=== PATIENT | female | born 1940 | race Caucasian/White ===

== ENCOUNTER 2019-10-17 12:09 | Outpatient (CLI) | payer OTHER, SELFPAY ==
[2019-10-17 12:54] LABS: Basophils Absolute Auto 0.1 K/mm3 (0.0-0.1); Basophils Percent Auto 0.6 % (0.2-1.2); Eosinophils Absolute Auto 0.2 K/mm3 (0-0.3); Eosinophils Percent Auto 2.5 % (0-4.4); Hematocrit 45.6 % (37.0-47.0); Hemoglobin 15.4 g/dL (12.0-15.0); Immature Granulocyte Absolute 0.03 K/mm3 (0.00-0.031); Immature Granulocyte Percent A 0.4 % (0-0.5); Lymphocytes Absolute Auto 1.85 K/mm3 (0.9-3.2); Lymphocytes Percent Auto 22.2 % (18.3-44.2); Mean Corpuscular HGB Conc 33.8 g/dl (32-36); Mean Corpuscular Hemoglobin 28.7 pg (26-34); Mean Corpuscular Volume 85.1 fl (80-100); Mean Platelet Volume 8.8 fl (7.4-10.4); Monocytes Percent Auto 12.5 % (2.6-8.5); Neutrophils Absolute Auto 5.2 K/mm3 (1.3-6.7); Neutrophils Percent Auto 61.8 % (45.5-73.1); Platelet Count Result 220 k/mm3 (150-375); Red Blood Count 5.36 M/mm3 (4.2-5.4); Red Cell Distribution Width 13.3 % (11.5-14.5); White Blood Count 8.4 K/mm3 (4.5-10.0)
[2019-10-17 13:10] LABS: Alanine Aminotransferase 22 U/L (4-35); Albumin Level 4.5 g/dL (3.5-5.1); Alkaline Phosphatase 81 U/L (38-126); Aspartate Amino Transferase 35 U/L (14-36); Bilirubin,Total 0.6 mg/dL (0.2-1.3); Blood Urea Nitrogen 15 mg/dL (7-17); Calcium 9.7 mg/dL (8.4-10.2); Carbon Dioxide 28 mmol/L (22-30); Chloride 96 mmol/L (98-107); Estimated Glomerular Filt Rate 60; Glucose 148 mg/dL (65-105); Potassium 3.6 mmol/L (3.4-5.0); Sodium 140 mmol/L (137-145)
== END 2019-10-17 12:10 | disposition home or self-care (01) ==
PROVIDERS: Visit Provider Psychiatry & Neurology Neurology
DX: I63.9 Cerebral infarction, unspecified (principal)
CPT/HCPCS: 36415; 80053; 85025

== ENCOUNTER 2019-12-23 10:23 | Outpatient (CLI) | payer OTHER, SELFPAY ==
[2019-12-23 11:21] LABS: Hemoglobin A1C 6.6 % (<5.7)
== END 2019-12-23 10:24 | disposition home or self-care (01) ==
PROVIDERS: PCP Emergency Medicine; Visit Provider Psychiatry & Neurology Neurology
DX: E11.9 Type 2 diabetes mellitus without complications (principal)
CPT/HCPCS: 36415; 83036

== ENCOUNTER 2020-02-02 11:31 | Inpatient (IN) | payer OTHER, SELFPAY ==
[2020-02-02] VITALS (12 sets, daily range): BP systolic 102–179; BP diastolic 59–93; PULSE 73–122; RESP 18–27; TEMP 36.4–39.5; O2SAT 94–100; BMI 24.5
--- NOTE | ~2020-02-02 | CT_ITS ---
EXAMINATION: CT abdomen pelvis w con DATE: 02/04/2020 10:20 INDICATION: Epigastric abdominal pain. Diarrhea. TECHNIQUE: Computed tomography (CT) of the abdomen and pelvis was performed with 100 mL Omnipaque 350 intravenous contrast. Automated exposure control and iterative reconstruction technique were employe d. The dose-length product was 450.71 mGy-cm. COMPARISON: None. FINDINGS: The visualized portions of the lung bases demonstrate airspace and ground glass opacities i n right lower lobe, consistent with pneumonia. There is mild atelectasis in left lung. There is shae h septal thickening bilaterally, consistent with mild pulmonary edema. There is a small right pleural effusion. There is a trace left pleural effusion. The heart size is normal. There are coronary arter y calcifications. No pericardial effusion. Bilateral breast implants are noted. The liver, spleen, ga llbladder, pancreas, and adrenal glands are normal. There is cortical thinning of the kidneys. There is a 6 mm cyst in right kidney. There is liquid stool in the colon correlating with the symptom of di arrhea. There are no dilated loops of bowel. The appendix not visualized. There is a small sliding hi atal hernia. There are no pathologically enlarged lymph nodes. There is trace pelvic ascites. There i s severe lumbar spondylosis. IMPRESSION: 1. Mild pulmonary edema. 2. Right lower lobe pneumonia. 3. Small right pleural effusion. Reviewed, dictated and finalized at location A.
--- NOTE | ~2020-02-02 | XR_ITS ---
EXAMINATION: XR chest 2V DATE: 02/02/2020 12:14 INDICATION: Generalized weakness, nausea and vomiting TECHNIQUE: AP and lateral views of the chest are obtained. COMPARISON: 08/07/2018 FINDINGS: There are airspace opacities of the lung bases. There is no pleural effusion or pneumothora x. The cardiomediastinal silhouette is normal. There is severe thoracic spondylosis. Bilateral breast implants are noted. IMPRESSION: 1. Airspace opacities of the lung bases, consistent with atelectasis versus pneumonia. Reviewed, dictated and finalized at location A. IMPRESSION: 1. Airspace opacities of the lung bases, consistent with atelectasis versus pne umonia.
--- NOTE | 2020-02-02 11:39 | ECG_ITS ---
Measurements Intervals [place] Rate: 116 P: 11 [place]: 162 QRS: -32 QRSD: 101 T: 38 QT: 311 QTc: 434 Interpretive Statements SINUS TACHYCARDIA LEFT AXIS DEVIATION DELAYED PRECORDIAL R/S TRANSITION INFERIOR INFARCT, AGE INDETERMINATE BORDERLINE ST ABNORMALITY- HIGH LATERAL LEADS BASELINE WANDER- V1-V2 ABNORMAL ECG Electronically Signed On 02-02-2020 14:02:38 CDT by Zan Díaz D.O.
[2020-02-02 11:48] LABS: Basophils Percent Auto 0.1 % (0.2-1.2); Eosinophils Percent Auto 0.1 % (0-4.4); Hemoglobin 14.4 g/dL (12.0-15.0); Immature Granulocyte Absolute 0.08 K/mm3 (0.00-0.031); Immature Granulocyte Percent A 0.6 % (0-0.5); Lymphocytes Absolute Auto 0.56 K/mm3 (0.9-3.2); Lymphocytes Percent Auto 3.9 % (18.3-44.2); Mean Corpuscular HGB Conc 33.5 g/dl (32-36); Mean Corpuscular Hemoglobin 28.5 pg (26-34); Mean Corpuscular Volume 85.1 fl (80-100); Mean Platelet Volume 8.7 fl (7.4-10.4); Monocytes Absolute Auto 1.1 K/mm3 (0.1-0.6); Monocytes Percent Auto 7.4 % (2.6-8.5); Neutrophils Absolute Auto 12.7 K/mm3 (1.3-6.7); Neutrophils Percent Auto 87.9 % (45.5-73.1); Platelet Count Result 190 k/mm3 (150-375); Red Blood Count 5.05 M/mm3 (4.2-5.4); Red Cell Distribution Width 13.2 % (11.5-14.5); White Blood Count 14.5 K/mm3 (4.5-10.0)
[2020-02-02 12:01] LABS: Alanine Aminotransferase 15 U/L (4-35); Alkaline Phosphatase 68 U/L (38-126); Aspartate Amino Transferase 24 U/L (14-36); Bilirubin,Total 0.4 mg/dL (0.2-1.3); Blood Urea Nitrogen 11 mg/dL (7-17); Calcium 9.1 mg/dL (8.4-10.2); Carbon Dioxide 26 mmol/L (22-30); Chloride 97 mmol/L (98-107); Estimated CRCL calculation 44 ml/min; Estimated Glomerular Filt Rate > 60; Glucose 178 mg/dL (65-105); Potassium 3.5 mmol/L (3.4-5.0); Sodium 133 mmol/L (137-145)
[2020-02-02 12:03] LABS: Add Urine Microscopic? YES; Appearance Urine Clear (Clear); Bacteria Urine Trace /hpf; Bilirubin Urine Negative (Negative); Blood Urine 1+ (Negative); Color Urine Yellow (Yellow); Glucose Urine UA 1+ mg/dL (Negative); Ketones Urine Negative (Negative); Leukocyte Esterase Ur Negative LEU/UL (Negative); Mucus Urine Rare /lpf; Nitrate Urine Negative (Negative); Protein Urine 1+ mg/dL (Negative); RBC Urine 0-2 /hpf (0-2); Specific Grav Ur 1.018 (1.001-1.035); Urobilinogen Urine Negative mg/dL (<2.0); WBC Urine 0-3 /hpf
[2020-02-02 12:14] LABS: Lactic Acid Reflex 3.3 mmol/L (0.7-2.1)
--- NOTE | 2020-02-02 12:35 | ED.GENADULT ---
HPI - General Adult General Chief complaint: Weakness Stated complaint: DIARRHEA Time Seen by Provider: 02/02/20 12:17 History of Present Illness HPI narrative: Patient is a 79 y/o female complaining of feeling hot and weak starting several hours ago. She states that her symptoms were moderate. There was no alleviating or exacerbating factor. However, her symptoms improved spontaneously. She denies any fever, cough, chest pain or abdominal pain. Related Data Home Medications Medication Instructions Recorded Confirmed venlafaxine 150 mg PO DAILY 02/02/20 02/02/20 Allergies Allergy/AdvReac Type Severity Reaction Status Date / Time No Known Allergies Allergy Unverified 08/07/18 16:00 Review of Systems Constitutional: Constitutional: Denies chills, Denies fever(s), Denies headache(s) and Denies weakness Eyes: Eyes: Denies blurry vision ENT: Denies headache(s) and Denies neck pain Cardiovascular: Cardiovascular: Denies chest pain and Denies dyspnea Respiratory: Respiratory: Denies cough and Denies dyspnea Gastrointestinal: Gastrointestinal: Denies abdominal pain, Denies diarrhea, Denies nausea and Denies vomiting Genitourinary: Genitourinary: Denies hematuria and Denies dysuria Musculoskeletal: Musculoskeletal: Denies back pain and Denies neck pain Neurologic: Denies headache(s) and Denies weakness [facility] Family History Family History (Updated 02/02/20 @ 15:07 by Dwaine Weber RN) Sibling Family history of malignant neoplasm of ovary Acute myocardial infarction Mother PNA (pneumonia) Social History Social History Smoking packs per day: 1 Smoking cigarettes per day: 20.0 Years smoked: 40 Smoking pack-years: 40.00 Smoking status: Former smoker Smoking end date: 08/20/1959 Alcohol intake: never Substance use: never Gender identity (if verbalized by the patient): Female Spiritual care concerns: No Exam Const: General: no acute distress and well developed Orientation/consciousness: oriented to person, oriented to place, oriented to time and patient oriented x3 HENMT: Head: normocephalic Ears: external ears normal General nose exam: Normal external nose present Eyes: General: appearance normal, both eyes and all related structures Conjunctivae: conjunctivae normal Neck: Neck: normal visual inspection and full ROM Chest: Chest palpation & inspection: normal inspection of the chest and no tenderness Resp: Effort & Inspection: normal respiratory effort Auscultation: clear to auscultation bilaterally Cardio: Rate: tachycardic Rhythm: regular rhythm GI: GI Palp: No abdominal tenderness and Yes Soft to palpation Skin: General skin exam: normal color and turgor normal Neuro: General: oriented to person, oriented to place, oriented to time and patient oriented x3 Cranial nerves: Yes CN's II-XII intact bilaterally Cognition (Neuro): normal cognition Speech: normal speech Motor exam (neuro): 5/5 motor strength present throughout Sensory Exam: normal sensation Coordination: [id number]-[id number] test normal and [id number] test normal Extrem: General: normal to inspection, full ROM and no pedal edema Psych: Appearance: grossly normal Mental Status: mental status grossly normal Affect: normal affect Course Vital Signs Vital signs: Vital Signs Temperature 36.6 C 02/02/20 11:28 Pulse Rate 122 H 02/02/20 11:28 Respiratory Rate 22 H 02/02/20 11:28 Blood Pressure 179/93 H 02/02/20 11:28 Pulse Oximetry 100 02/02/20 11:28 Temperature 39.5 C H 02/02/20 16:00 Pulse Rate 108 H 02/02/20 16:00 Respiratory Rate 20 02/02/20 15:35 Blood Pressure 147/74 H 02/02/20 15:35 Pulse Oximetry 99 02/02/20 15:35 Medical Decision Making MDM Narrative Medical decision making narrative: Patient presents with feeling hot , although no fever is documented. She has tachycardia, leukocytosis and elevated lacti
[2020-02-02 14:58] LABS: Reflex Lactic Acid Yes or No Add Lactic
--- NOTE | 2020-02-02 15:01 | ADMGEN ---
This patient, Chayito Grimm, was admitted to [facility] Surg Room 333-01. Patient/family oriented to hospital policies and general routines including ID bracelet, bed and alarms, visiting hours, pain management, procedures, bathroom and other care routines, personal items, smoking policy, room service/diet, and visiting hours. Valuables list has been completed. Information on how to activate the Rapid Response Team has been discussed. Patient/Family are encouraged to report perceived risks to care and to ask questions if they do not understand what they are told or what they should do.
[2020-02-02 15:34] LABS: Lactic Acid 1.9 mmol/L (0.7-2.1)
[2020-02-02] MEDS: ACETAMINOPHEN 325 MG TABLET 650 MG PO (16:00)
--- NOTE | 2020-02-02 21:45 | PM.IMHP ---
H&P: HPI History of Present Illness Chief complaint: Generalized weakness. Narrative: Chayito Grimm is a very pleasant 79-year-old female with history of depression, anxiety, and sleep apnea earlier this afternoon via EMS from home for evaluation of generalized weakness. She reports having diarrhea for approximately 5 days, so severe that she had episodes of incontinence and was unable to make it to the bathroom due to progressive weakness. She has not had diarrhea for well over 24 hours, but she feels so dehydrated and worn out from the diarrhea that she has barely been able to get up and about without feeling dizzy. Today, she reports feeling warm and thought she likely had a fever, after discussions with her friend they thought it would be best to call the ambulance. With further questioning, she does mention a nonproductive cough over the past 2 days, a generalized headache, and perhaps a bit of shortness of breath which she blames on weakness from her recent illness. She lives in her own home and has been trying to stay at home, into her knowledge she has not had exposure to anybody who has tested positive for COVID-19. No recent travel or antibiotic use. She denies sinus congestion, rhinorrhea, otalgia, odynophagia, anosmia, and dysgeusia. She has not had chest pain, pleuritic pain, or palpitations. Her appetite has been okay and she denies nausea and vomiting to me however it looks like she reported nausea and vomiting to the triage nurse on arrival to the emergency department. She has not had dysuria, urinary hesitancy, urgency, or frequency. She does note some incontinence, which has been worse the past couple of days due to her weakness and inability to get to the bathroom in a timely fashion. Review of Systems Review of Systems: Narrative: Twelve systems were reviewed with pertinent positives and negatives as per HPI. No neck ache. She denies sinus congestion, rhinorrhea, otalgia, and odynophagia. No history of C diff. No wounds to her knowledge. No chest pain or pleuritic pain. She denies lower extremity edema. No confusion. She denies acute auditory and visual changes. No focal weakness or paresthesias. She does report increasing depression since her son last June. No suicidal ideation. Except as documented, all other systems were reviewed and are negative. [facility] Past Medical History Medical History (Updated 02/02/20 @ 23:34 by Gisela Malik PA-C) Depression with anxiety Gastroesophageal reflux disease Obstructive sleep apnea She does not use a CPAP. Rheumatic fever In childhood. Surgical History Surgical History (Updated 02/02/20 @ 20:53 by Gisela Malik PA-C) History of appendectomy History of tonsillectomy and adenoidectomy Family History Family History Sibling Family history of malignant neoplasm of ovary Acute myocardial infarction Mother PNA (pneumonia) Social History Social History (Updated 02/02/20 @ 23:20 by Gisela Malik PA-C) Social History: The patient lives in her own home in [place], [place]. She has an orange cat named terrence that lives at home with her. Her only child, son Lam, in June 2019. 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 She smoked about a pack of cigarettes per day and quit many years ago. She denies alcohol and illicit substance use. She designates her ex-, Familia Grimm, and a friend named Inocencia as her surrogate decision makers. She wishes to be a full code. Smoking packs per day: 1 Smoking cigarettes per day: 20.0 Years smoked: 40 Smoking pack-years: 40.00 Spiritual care concerns: No Meds Home Medications and Allergies Home Medications Medication Instructions Recorded Confirmed Type alprazolam 0.25 mg tablet 0.25 mg PO TID PRN #60 tablet 09/12/19 02/02/20 Rx ve
[2020-02-03] VITALS (10 sets, daily range): BP systolic 110–144; BP diastolic 55–83; PULSE 66–95; RESP 16–18; TEMP 36.3–37.2; O2SAT 92–99; BMI 24.5
[2020-02-03] MEDS: SODIUM CHLORIDE 0.9% IV 1,000 ML 75 ML IV CONT ×2 (00:14→15:34)
[2020-02-03] MEDS: ACETAMINOPHEN 325 MG TABLET 650 MG PO ×2 (06:18→17:23)
[2020-02-03] MEDS: ALPRAZOLAM 0.25 MG TABLET PO (06:18)
[2020-02-03 08:36] LABS: Basophils Percent Auto 0.2 % (0.2-1.2); Eosinophils Absolute Auto 0.1 K/mm3 (0-0.3); Eosinophils Percent Auto 0.4 % (0-4.4); Hematocrit 35.4 % (37.0-47.0); Hemoglobin 11.9 g/dL (12.0-15.0); Immature Granulocyte Absolute 0.06 K/mm3 (0.00-0.031); Immature Granulocyte Percent A 0.4 % (0-0.5); Lymphocytes Absolute Auto 1.03 K/mm3 (0.9-3.2); Lymphocytes Percent Auto 7.2 % (18.3-44.2); Mean Corpuscular HGB Conc 33.6 g/dl (32-36); Mean Corpuscular Hemoglobin 28.8 pg (26-34); Mean Corpuscular Volume 85.7 fl (80-100); Mean Platelet Volume 9.2 fl (7.4-10.4); Monocytes Absolute Auto 1.4 K/mm3 (0.1-0.6); Monocytes Percent Auto 10.1 % (2.6-8.5); Neutrophils Absolute Auto 11.6 K/mm3 (1.3-6.7); Neutrophils Percent Auto 81.7 % (45.5-73.1); Platelet Count Result 173 k/mm3 (150-375); Red Blood Count 4.13 M/mm3 (4.2-5.4); Red Cell Distribution Width 13.3 % (11.5-14.5); White Blood Count 14.2 K/mm3 (4.5-10.0)
[2020-02-03 08:55] LABS: Blood Urea Nitrogen 11 mg/dL (7-17); Calcium 8.1 mg/dL (8.4-10.2); Carbon Dioxide 25 mmol/L (22-30); Chloride 98 mmol/L (98-107); Estimated CRCL calculation 39 ml/min; Estimated Glomerular Filt Rate 60; Glucose 148 mg/dL (65-105); Magnesium 1.4 mg/dL (1.6-2.3); Potassium 3.5 mmol/L (3.4-5.0); Sodium 129 mmol/L (137-145)
[2020-02-03] MEDS: VENLAFAXINE HCL XR 75 MG CAP.ER.24H 150 MG PO (09:24)
[2020-02-03] MEDS: ENOXAPARIN 40 MG/0.4 ML SYRINGE SUB-Q (09:24)
[2020-02-03 14:02] LABS: SARS-CoV-2 RNA PCR Negative
--- NOTE | 2020-02-03 14:28 | PC.NURSE ---
Notified Derek JESUS that patients COVID test came back negative
[2020-02-03] MEDS: MAGNESIUM SULF 2 GM/WATER 50ML 2 GM/50 ML BAG IVPB (15:21)
--- NOTE | 2020-02-03 16:28 | PM.IMPN ---
Progress Note: A&P Assessment and Plan (1) Sepsis: Qualifiers: Sepsis acute organ dysfunction status: unspecified Sepsis type: sepsis due to unspecified organism Qualified Code(s): A41.9 - Sepsis, unspecified organism Code(s): A41.9 - Sepsis, unspecified organism Status: Acute Assessment and Plan: Present on admission and supported by fever, tachycardia, tachypnea, leukocytosis, and lactic acidosis; all have improved/normalized since admission. Her lactic acid level has normalized with IV fluid rehydration. Blood cultures negative to date. Etiology of sepsis not entirely clear, but would consider pneumonia given chest x-ray findings or even GI source given diarrhea and epigastric pain Will continue empiric antibiotic therapy with Zosyn which should cover either source, pending cultures. Will do CT of abd/pelvis given nowing having epigastric pain and continued diarrhea Monitor (2) Suspected COVID-19 virus infection: Code(s): Z20.828 - Contact with and (suspected) exposure to other viral communicable diseases Status: Ruled-out Assessment and Plan: SARS-CoV-2 PCR negative will take of isolation (3) Depression with anxiety: Code(s): F41.8 - Other specified anxiety disorders Status: Acute Assessment and Plan: She admits to being more depressed since her only child in June 2019. 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 She is hoping to get in to [facility]. Continue alprazolam as needed as well as venlafaxine. (4) Pneumonia: Code(s): J18.9 - Pneumonia, unspecified organism Status: Acute Assessment and Plan: Chest x-ray shows airways opacities at both lung bases consistent with atelectasis versus pneumonia. Given reports of cough the past couple of days, will empirically treat for pneumonia. Sputum to be attempted for culture; check urinary antigens as well. Monitor (5) Diarrhea: Code(s): R19.7 - Diarrhea, unspecified Status: Acute Assessment and Plan: Patient continues to have diarrhea for the past 6 days. Epigastric pain/tenderness noted on exam. C. diff testing negative. Will do CT abd/pelvis with contrast to further evaluate; await results Monitor Pending CT results consider GI consultation (6) Generalized weakness: Code(s): R53.1 - Weakness Status: Acute Assessment and Plan: Due to acute illness. PT/OT ordered Patient expresses interest in moving to assisted living. Subjective Date/time seen: 02/03/20 16:28 Interval history: Patient is a 79 yo F with history of depression, anxiety, and sleep apnea who is here for treatment of sepsis with likely source of PNA. Patient states she still has some diarrhea, having two BMs today. She notes there is some improvement. She states has had a cough that has been unchanged for about 2 weeks. She has no other complaints at the moment. Denies f/c/s, headaches, dizziness, lightheadedness, cp/palpitations, sob, n/v,dysuria, hematuria, cloudy urine, calf pain/swelling. Review of Systems Review of Systems: All systems reviewed & are unremarkable except as noted in HPI and below Exam Narrative: Exam Narrative: Patient lying supine in bed with head raised slightly at time of visit Const: General: cooperative, comfortable, no acute distress, well developed, alert and awake Nutritional Appearance: well nourished Orientation/consciousness: patient oriented x3 HENMT: Head: normocephalic and atraumatic General nose
[2020-02-04 02:00] VITALS: BP 137/79; PULSE 94; RESP 18; TEMP 36.2; O2SAT 94
[2020-02-04 06:00] VITALS: BP 155/82; PULSE 83; RESP 18; TEMP 36.8; O2SAT 93
[2020-02-04 06:39] LABS: Basophils Percent Auto 0.3 % (0.2-1.2); Eosinophils Percent Auto 0.3 % (0-4.4); Hematocrit 35.5 % (37.0-47.0); Hemoglobin 12.3 g/dL (12.0-15.0); Immature Granulocyte Absolute 0.09 K/mm3 (0.00-0.031); Immature Granulocyte Percent A 0.6 % (0-0.5); Lymphocytes Absolute Auto 0.78 K/mm3 (0.9-3.2); Lymphocytes Percent Auto 5.3 % (18.3-44.2); Mean Corpuscular HGB Conc 34.6 g/dl (32-36); Mean Corpuscular Hemoglobin 29.4 pg (26-34); Mean Corpuscular Volume 84.7 fl (80-100); Mean Platelet Volume 9.4 fl (7.4-10.4); Monocytes Absolute Auto 1.2 K/mm3 (0.1-0.6); Monocytes Percent Auto 7.8 % (2.6-8.5); Neutrophils Absolute Auto 12.6 K/mm3 (1.3-6.7); Neutrophils Percent Auto 85.7 % (45.5-73.1); Platelet Count Result 197 k/mm3 (150-375); Red Blood Count 4.19 M/mm3 (4.2-5.4); White Blood Count 14.7 K/mm3 (4.5-10.0)
[2020-02-04 06:55] LABS: Blood Urea Nitrogen 8 mg/dL (7-17); Calcium 8.4 mg/dL (8.4-10.2); Carbon Dioxide 25 mmol/L (22-30); Chloride 99 mmol/L (98-107); Estimated CRCL calculation 50 ml/min; Estimated Glomerular Filt Rate > 60; Glucose 134 mg/dL (65-105); Potassium 3.3 mmol/L (3.4-5.0); Sodium 130 mmol/L (137-145)
[2020-02-04 10:00] VITALS: BP 163/74; PULSE 83; RESP 24; TEMP 38.1; O2SAT 96
--- NOTE | 2020-02-04 10:20 | PCPTNOTE ---
Attempted to see pt this a.m. - she was off the floor at CT. Will try again later today.
[2020-02-04] MEDS: ENOXAPARIN 40 MG/0.4 ML SYRINGE SUB-Q (11:00)
[2020-02-04] MEDS: POTASSIUM CHLORIDE 20 MEQ TABLET 40 MEQ PO (11:00)
[2020-02-04] MEDS: VENLAFAXINE HCL XR 75 MG CAP.ER.24H 150 MG PO (11:00)
--- NOTE | 2020-02-04 12:24 | PM.IMPN ---
Progress Note: A&P Assessment and Plan (1) Sepsis: Qualifiers: Sepsis acute organ dysfunction status: unspecified Sepsis type: sepsis due to unspecified organism Qualified Code(s): A41.9 - Sepsis, unspecified organism Code(s): A41.9 - Sepsis, unspecified organism Status: Acute Assessment and Plan: Present on admission and supported by fever, tachycardia, tachypnea, leukocytosis, and lactic acidosis. Her lactic acid level has normalized with IV fluid rehydration. Blood cultures show one anaerobic bottle growing gram positive cocci in clusters; possibly skin contaminate. Etiology of sepsis likely pneumonia as source given chest x-ray and CT abd/pelvis results. GI source unlikely given CT results Will continue empiric antibiotic therapy with Zosyn for PNA, will add Vanc given positive blood culture, although, likely contaminate; also having increased leukocytosis today. Monitor (2) Pneumonia: Code(s): J18.9 - Pneumonia, unspecified organism Status: Acute Assessment and Plan: Chest x-ray shows airways opacities at both lung bases consistent with atelectasis versus pneumonia. CT of abd/pelvis showed RLL PNA. Will continue treatment with Zosyn and add Vanc given persistently elevated leukocytosis and prelim positive blood culture (one anaerobic bottle only, likely contaminate as gram positive cocci in clusters) Sputum to be attempted for culture; check urinary antigens as well. Monitor BCx closely, consider repeat BCx and possible ID consult if growth in other bottles Consider de-escalation pending Blood cultures and clinical improvement Monitor clinically (3) Depression with anxiety: Code(s): F41.8 - Other specified anxiety disorders Status: Acute Assessment and Plan: She admits to being more depressed since her only child in June 2019. 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 She is hoping to get in to [facility]. Continue alprazolam as needed as well as venlafaxine. (4) Diarrhea: Code(s): R19.7 - Diarrhea, unspecified Status: Acute Assessment and Plan: Patient states she has had improvement today. Epigastric pain has resolved, but stated it was due to her abdominal muscles from coughing. CT abd/pelvis unremarkable for etiology for diarrhea/pain and possible source of infection. Stool testing negative thus far. will add Florastor TID for loose stools, particularly during antibiotic therapy. Monitor (5) Generalized weakness: Code(s): R53.1 - Weakness Status: Acute Assessment and Plan: Due to acute illness. PT/OT ordered Patient expresses interest in moving to assisted living. (6) Suspected COVID-19 virus infection: Code(s): Z20.828 - Contact with and (suspected) exposure to other viral communicable diseases Status: Ruled-out Assessment and Plan: SARS-CoV-2 PCR negative Subjective Date/time seen: 02/04/20 12:24 Interval history: Patient is a 79 yo F with history of depression, anxiety, and sleep apnea who is here for treatment of sepsis with likely source of PNA. Patient states she feels much better today. She notes her cough/SOB is improved. Her abdominal pain and diarrhea have also improved. She is tolerating her diet okay. No other complaints at the moment. Denies f/c/s, headaches, dizziness, lightheadedness, cp/palpitations, sob, n/v, dysuria, hematuria, cloudy urine, calf pain/swelling. Review of Systems Review of Systems: All systems reviewed & ar
[2020-02-04 14:00] VITALS: BP 149/79; PULSE 84; RESP 16; TEMP 36.7; O2SAT 95
[2020-02-04] MEDS: SACCHAROMYCES BOULARDII 250 MG CAPSULE PO (17:00)
[2020-02-04 22:00] VITALS: BP 157/85; PULSE 80; RESP 18; TEMP 37.4; O2SAT 94
[2020-02-05 02:00] VITALS: BP 142/70; PULSE 77; RESP 18; TEMP 38.1; O2SAT 94
[2020-02-05 06:00] VITALS: BP 148/75; PULSE 72; RESP 20; TEMP 37.1; O2SAT 93
[2020-02-05 06:37] LABS: Basophils Absolute Auto 0.1 K/mm3 (0.0-0.1); Basophils Percent Auto 0.4 % (0.2-1.2); Eosinophils Absolute Auto 0.1 K/mm3 (0-0.3); Eosinophils Percent Auto 0.6 % (0-4.4); Hematocrit 31.5 % (37.0-47.0); Hemoglobin 10.9 g/dL (12.0-15.0); Immature Granulocyte Absolute 0.06 K/mm3 (0.00-0.031); Immature Granulocyte Percent A 0.5 % (0-0.5); Lymphocytes Absolute Auto 1.27 K/mm3 (0.9-3.2); Lymphocytes Percent Auto 10.8 % (18.3-44.2); Mean Corpuscular HGB Conc 34.6 g/dl (32-36); Mean Corpuscular Hemoglobin 29.4 pg (26-34); Mean Corpuscular Volume 84.9 fl (80-100); Mean Platelet Volume 9.7 fl (7.4-10.4); Monocytes Absolute Auto 1.1 K/mm3 (0.1-0.6); Neutrophils Absolute Auto 9.3 K/mm3 (1.3-6.7); Neutrophils Percent Auto 78.7 % (45.5-73.1); Platelet Count Result 199 k/mm3 (150-375); Red Blood Count 3.71 M/mm3 (4.2-5.4); Red Cell Distribution Width 13.1 % (11.5-14.5); White Blood Count 11.8 K/mm3 (4.5-10.0)
[2020-02-05 06:46] LABS: Blood Urea Nitrogen 6 mg/dL (7-17); Calcium 8.4 mg/dL (8.4-10.2); Carbon Dioxide 25 mmol/L (22-30); Chloride 100 mmol/L (98-107); Estimated CRCL calculation 50 ml/min; Estimated Glomerular Filt Rate > 60; Glucose 125 mg/dL (65-105); Magnesium 1.9 mg/dL (1.6-2.3); Potassium 3.4 mmol/L (3.4-5.0); Sodium 130 mmol/L (137-145)
[2020-02-05] MEDS: POTASSIUM CHLORIDE 20 MEQ TABLET 40 MEQ PO (08:38)
[2020-02-05] MEDS: ENOXAPARIN 40 MG/0.4 ML SYRINGE SUB-Q (08:39)
[2020-02-05] MEDS: VENLAFAXINE HCL XR 75 MG CAP.ER.24H 150 MG PO (08:39)
[2020-02-05] MEDS: SACCHAROMYCES BOULARDII 250 MG CAPSULE PO ×3 (08:39→17:17)
[2020-02-05] MEDS: ACETAMINOPHEN 325 MG TABLET 650 MG PO ×2 (08:43→15:20)
[2020-02-05 10:16] VITALS: BP 113/70; PULSE 74; RESP 16; TEMP 36.8; O2SAT 95
--- NOTE | 2020-02-05 11:07 | PM.IMPN ---
Progress Note: A&P Assessment and Plan (1) Sepsis: Qualifiers: Sepsis acute organ dysfunction status: unspecified Sepsis type: sepsis due to unspecified organism Qualified Code(s): A41.9 - Sepsis, unspecified organism Code(s): A41.9 - Sepsis, unspecified organism Status: Acute Assessment and Plan: Present on admission and supported by fever, tachycardia, tachypnea, leukocytosis, and lactic acidosis. Her lactic acid level has normalized with IV fluid rehydration. Blood cultures show one anaerobic bottle growing coag neg staph; likely skin contaminate. Etiology of sepsis likely pneumonia as source given chest x-ray and CT abd/pelvis results. GI source unlikely given CT results. Leukocytosis improving Will switch antibiotic therapy to cefdinir Q12 and azithromycin daily. Stop vanc and zosyn Monitor (2) Pneumonia: Code(s): J18.9 - Pneumonia, unspecified organism Status: Acute Assessment and Plan: Chest x-ray shows airways opacities at both lung bases consistent with atelectasis versus pneumonia. CT of abd/pelvis showed RLL PNA. As above, will stop vanc and zosyn. Start patient on cefdinir 300 mg Q12 PO tonight and azithromycin 500 mg every evening PO. Sputum to be attempted for culture; check urinary antigens as well; unfortunately both have been uncollected Monitor BCx closely, consider repeat BCx and possible ID consult if growth in other bottles Monitor clinically Continue with Florastor for loose stools (3) Depression with anxiety: Code(s): F41.8 - Other specified anxiety disorders Status: Acute Assessment and Plan: She admits to being more depressed since her only child in June 2019. 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 She is hoping to get in to [facility]. Continue alprazolam as needed as well as venlafaxine. (4) Diarrhea: Code(s): R19.7 - Diarrhea, unspecified Status: Acute Assessment and Plan: Patient states she has had improvement today. Epigastric pain has resolved, but stated it was due to her abdominal muscles from coughing. CT abd/pelvis unremarkable for etiology for diarrhea/pain and possible source of infection. Stool testing negative thus far. will continue Florastor TID for loose stools, particularly during antibiotic therapy. Monitor (5) Generalized weakness: Code(s): R53.1 - Weakness Status: Acute Assessment and Plan: Due to acute illness. PT/OT ordered SNF recommended. Patient would like to think this more, but is open to either SNF or HH. CC following Patient expresses interest in moving to assisted living. (6) Suspected COVID-19 virus infection: Code(s): Z20.828 - Contact with and (suspected) exposure to other viral communicable diseases Status: Ruled-out Assessment and Plan: SARS-CoV-2 PCR negative Subjective Date/time seen: 02/05/20 11:07 Interval history: Patient is a 79 yo F with history of depression, anxiety, and sleep apnea who is here for treatment of sepsis with likely source of PNA. Patient states she feels about the same today. Her main complaint is weakness today. She notes her cough/SOB is improved, although still some abdominal/chest discomfort with inspiration from coughing so much. She still has loose stools, but one BM/day per patient. She is tolerating her diet okay. No other complaints at the moment. Had a long discussion about possibly going to SNF for further rehab; she is now open to the idea, but wants t
[2020-02-05 14:45] VITALS: BP 128/63; PULSE 83; RESP 16; TEMP 37.7; O2SAT 96
[2020-02-05] MEDS: AZITHROMYCIN 250 MG TABLET 500 MG PO (17:17)
[2020-02-05 17:50] VITALS: BP 141/70; PULSE 77; RESP 16; TEMP 37.7; O2SAT 95
[2020-02-05] MEDS: CEFDINIR 300 MG CAPSULE PO (20:22)
[2020-02-05 22:00] VITALS: BP 168/74; PULSE 68; RESP 18; TEMP 36.8; O2SAT 96
[2020-02-06 02:49] VITALS: BP 157/80; PULSE 79; RESP 18; TEMP 37.6; O2SAT 93
[2020-02-06 06:00] VITALS: BP 153/87; PULSE 78; RESP 20; TEMP 36.7; O2SAT 94
[2020-02-06 06:21] LABS: Basophils Percent Auto 0.3 % (0.2-1.2); Eosinophils Absolute Auto 0.2 K/mm3 (0-0.3); Eosinophils Percent Auto 1.6 % (0-4.4); Hematocrit 33.7 % (37.0-47.0); Hemoglobin 11.5 g/dL (12.0-15.0); Immature Granulocyte Absolute 0.06 K/mm3 (0.00-0.031); Immature Granulocyte Percent A 0.6 % (0-0.5); Lymphocytes Absolute Auto 1.13 K/mm3 (0.9-3.2); Lymphocytes Percent Auto 11.8 % (18.3-44.2); Mean Corpuscular HGB Conc 34.1 g/dl (32-36); Mean Corpuscular Hemoglobin 28.8 pg (26-34); Mean Corpuscular Volume 84.5 fl (80-100); Mean Platelet Volume 9.2 fl (7.4-10.4); Monocytes Absolute Auto 0.9 K/mm3 (0.1-0.6); Monocytes Percent Auto 9.1 % (2.6-8.5); Neutrophils Absolute Auto 7.4 K/mm3 (1.3-6.7); Neutrophils Percent Auto 76.6 % (45.5-73.1); Platelet Count Result 236 k/mm3 (150-375); Red Blood Count 3.99 M/mm3 (4.2-5.4); Red Cell Distribution Width 13.2 % (11.5-14.5); White Blood Count 9.6 K/mm3 (4.5-10.0)
[2020-02-06 06:35] LABS: Blood Urea Nitrogen 7 mg/dL (7-17); Calcium 8.6 mg/dL (8.4-10.2); Carbon Dioxide 26 mmol/L (22-30); Chloride 101 mmol/L (98-107); Estimated CRCL calculation 57 ml/min; Estimated Glomerular Filt Rate > 60; Glucose 120 mg/dL (65-105); Magnesium 1.7 mg/dL (1.6-2.3); Potassium 3.9 mmol/L (3.4-5.0); Sodium 131 mmol/L (137-145)
--- NOTE | 2020-02-06 09:07 | PM.DS ---
DS: Admitting Diagnosis Admitting Diagnosis Admitting Diagnosis: Sepsis, unspecified organism DS: Discharge Diagnosis Discharge Diagnosis (1) Sepsis: Qualifiers: Sepsis acute organ dysfunction status: unspecified Sepsis type: sepsis due to unspecified organism Qualified Code(s): A41.9 - Sepsis, unspecified organism Code(s): A41.9 - Sepsis, unspecified organism Status: Acute Assessment and Plan: Present on admission and supported by fever, tachycardia, tachypnea, leukocytosis, and lactic acidosis. Her lactic acid level has normalized with IV fluid rehydration. Etiology of sepsis likely pneumonia as source given chest x-ray and CT abd/pelvis results. GI source unlikely given CT results. Leukocytosis resolved. Blood cultures show one anaerobic bottle growing coag neg staph (sensitive to erythromycin); likely skin contaminate. Will continue cefdinir Q12 and azithromycin daily at discharge through 02/08 (7 total days antibiotic) d/c home with (2) Pneumonia: Code(s): J18.9 - Pneumonia, unspecified organism Status: Acute Assessment and Plan: Chest x-ray shows airways opacities at both lung bases consistent with atelectasis versus pneumonia. CT of abd/pelvis showed RLL PNA. As above, continue cefdinir 300 mg Q12 PO and azithromycin 500 mg every evening PO through 02/08 Sputum to be attempted for culture; check urinary antigens as well; unfortunately both have been uncollected Continue with Florastor for loose stools x 1 week Follow up with PCP in 1-2 weeks (3) Depression with anxiety: Code(s): F41.8 - Other specified anxiety disorders Status: Acute Assessment and Plan: She admits to being more depressed since her only child in June 2019. 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 She is hoping to get in to [facility]. Continue alprazolam as needed as well as venlafaxine. (4) Diarrhea: Code(s): R19.7 - Diarrhea, unspecified Status: Acute Assessment and Plan: Patient states her loose stools are stable, but persistent. Epigastric pain has resolved. CT abd/pelvis unremarkable for etiology for diarrhea/pain and possible source of infection. Stool testing negative thus far. will continue Florastor TID for loose stools, particularly during antibiotic therapy. F/u with PCP (5) Generalized weakness: Code(s): R53.1 - Weakness Status: Acute Assessment and Plan: Due to acute illness. PT/OT ordered; patient has made improvements yesterday; standby assist yesterday HH recommended at discharge. Patient comfortable with this Patient expresses interest in moving to assisted living. follow up with PCP (6) Suspected COVID-19 virus infection: Code(s): Z20.828 - Contact with and (suspected) exposure to other viral communicable diseases Status: Ruled-out Assessment and Plan: SARS-CoV-2 PCR negative DS: Summary Hospital Course Reason for hospitalization: Sepsis/PNA Hospital Course: Patient is a 79 yo F with history of depression, anxiety, and sleep apnea who presented to the ED on 02/01 via EMS from home for evaluation of generalized weakness. While in the ED, patient was found to be technically septic supported by fever, tachycardia, tachypnea, leukocytosis, and lactic acidosis with likely pneumonia as source given CXR findings performed in ED or less likely GI as source given her recent diarrhea. COVID testing also performed in ED. Patient admitted under this setting. Please see H&P for
[2020-02-06] MEDS: SACCHAROMYCES BOULARDII 250 MG CAPSULE PO ×2 (09:48→12:42)
[2020-02-06] MEDS: CEFDINIR 300 MG CAPSULE PO (09:48)
[2020-02-06] MEDS: ENOXAPARIN 40 MG/0.4 ML SYRINGE SUB-Q (09:48)
[2020-02-06] MEDS: VENLAFAXINE HCL XR 75 MG CAP.ER.24H 150 MG PO (09:48)
== END 2020-02-06 14:30 | disposition home health service (06) | DRG 871 ==
LOC: ANHED 12:51 → ANH3MEDSUR 18:08
PROVIDERS: Emergency Medicine; Physician Assistant; Admitting Provider Internal Medicine; Emergency Provider Emergency Medicine; PCP Emergency Medicine; Visit Provider Family Medicine
DX: A41.9 Sepsis, unspecified organism (principal); J18.9 Pneumonia, unspecified organism; Z20.828 Contact with and (suspected) exposure to other viral communicable diseases; F41.8 Other specified anxiety disorders; R19.7 Diarrhea, unspecified; K21.9 Gastro-esophageal reflux disease without esophagitis; G47.33 Obstructive sleep apnea (adult) (pediatric); Z87.891 Personal history of nicotine dependence
CPT/HCPCS: 36415; 51701; 71046; 74177; 80048; 80053; 81001; 83605; 83735; 85025; 87015; 87040; 87045; 87046; 87077; 87186; 87269; 87272; 87324; 87427; 87635; 93005; 96365; 96367; 97110; 97116; 97162; 97165; 97530; 97535; 99285; A9270; C9803; J0692; J1650; J2543; J3370; J3475; J7030; J7120; Q9967; U0003

== ENCOUNTER 2020-02-08 11:32 | Observation (INO) | payer OTHER, SELFPAY ==
[2020-02-08] VITALS (7 sets, daily range): BP systolic 146–190; BP diastolic 72–97; PULSE 70–81; RESP 16–20; TEMP 36.1–36.9; O2SAT 95–100; BMI 23.3; BMI 23.6
--- NOTE | ~2020-02-08 | XR_ITS ---
XR chest 1V portable 02/08/2020 12:40 Indication: Cough Procedure: AP portable chest Comparison: 02/02/2020 Findings: Heart size normal. Interval progression of bibasilar airspace disease, compatible with pneu monia. There are calcified bilateral breast implants. There is atherosclerosis of the aorta. No pleur al effusion or pneumothorax. Impression: 1: Interval progression of bibasilar airspace disease, compatible with pneumonia. Reviewed, dictated and finalized at location A. Impression: 1: Interval progression of bibasilar airspace disease, compatible with pneumoni a.
--- NOTE | ~2020-02-08 | CT_ITS ---
EXAMINATION: CT abdomen pelvis w con DATE: 02/08/2020 13:44 INDICATION: Abdominal pain and diarrhea TECHNIQUE: Computed tomography (CT) of the abdomen and pelvis was performed with 100 cc Omnipaque 350 intravenous contrast. The dose-length product was 403.51 mGy-cm. Automated exposure control and iter ative reconstruction technique were employed. COMPARISON: CT dated 02/04/2020 FINDINGS: There has been slight improvement of bilateral lower lobe airspace disease, right greater t chu left. Small right pleural effusion. Heart size normal. There are calcified bilateral breast impla nts. There is atherosclerosis of the aorta and coronary arteries. The liver, spleen, pancreas, adrenal glands and kidneys are unremarkable. Gallbladder is present. The re is a small subcentimeter right renal cyst. No bowel obstruction. There is liquid stool in the colo n and rectum, consistent with diarrhea. Bladder wall is mildly thickened, although not well distended . No free air or free fluid. No lymphadenopathy. No evidence for aortic aneurysm. Trace ascites. Saumya re lumbar spondylosis. IMPRESSION: 1. Bilateral lower lobe airspace disease, right greater than left, consistent with pneumonia. Finding s improved since prior CT. 2: Small right pleural effusion. 3: Mild bladder wall thickening which may be due to underdistention or cystitis. Consider correlation with urinalysis. Reviewed, dictated and finalized at location A. IMPRESSION: 1. Bilateral lower lobe airspace disease, right greater than left, consistent w ith pneumonia. Findings improved since prior CT. 2: Small right pleural effusion. 3: Mild bladder wall thickening which may be due to underdistention or cystitis . Consider correlation with urinalysis.
--- NOTE | 2020-02-08 11:54 | ED.GENADULT ---
HPI - General Adult General Chief complaint: Nausea/Vomiting/Diarrhea Stated complaint: weakness/diarrhea Time Seen by Provider: 02/08/20 11:46 History of Present Illness HPI narrative: Patient is a 79 y/o female complaining of diarrhea for several weeks. She states that her diarrhea is watery and she has approximately 4 episodes of diarrhea daily. There is no alleviating or exacerbating factor. She has mild abdominal pain, but no vomiting. She also has a mild cough. She also feels weak and feels like she is unable to care for herself at home. Related Data Home Medications Medication Instructions Recorded Confirmed venlafaxine 150 mg PO DAILY 02/02/20 02/02/20 azithromycin 500 mg PO HS 02/08/20 Allergies Allergy/AdvReac Type Severity Reaction Status Date / Time No Known Allergies Allergy Verified 02/08/20 11:50 Review of Systems Constitutional: Constitutional: Denies chills, Denies fever(s), Denies headache(s) and Reports weakness Eyes: Eyes: Denies blurry vision ENT: Denies headache(s) and Denies neck pain Cardiovascular: Cardiovascular: Denies chest pain and Denies dyspnea Respiratory: Respiratory: Reports cough and Denies dyspnea Gastrointestinal: Gastrointestinal: Reports abdominal pain, Reports diarrhea, Denies nausea and Denies vomiting Genitourinary: Genitourinary: Denies hematuria and Denies dysuria Musculoskeletal: Musculoskeletal: Denies back pain and Denies neck pain Neurologic: Denies headache(s) and Denies weakness PMFSH Past Medical History Medical History Depression with anxiety Gastroesophageal reflux disease Obstructive sleep apnea She does not use a CPAP. Rheumatic fever In childhood. Surgical History Surgical History History of appendectomy History of tonsillectomy and adenoidectomy Family History Family History Sibling Family history of malignant neoplasm of ovary Acute myocardial infarction Mother PNA (pneumonia) Social History Social History Social History: The patient lives in her own home in [place], [place]. She has an orange cat named terrence that lives at home with her. Her only child, son Lam, in June 2019. 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 She smoked about a pack of cigarettes per day and quit many years ago. She denies alcohol and illicit substance use. She designates her ex-, Familia Grimm, and a friend named Inocencia as her surrogate decision makers. She wishes to be a full code. Smoking packs per day: 1 Smoking cigarettes per day: 20.0 Years smoked: 40 Smoking pack-years: 40.00 Gender identity (if verbalized by the patient): Female Spiritual care concerns: No Exam Const: General: no acute distress and well developed Orientation/consciousness: oriented to person, oriented to place, oriented to time and patient oriented x3 HENMT: Head: normocephalic Ears: external ears normal General nose exam: Normal external nose present Eyes: General: appearance normal, both eyes and all related structures Conjunctivae: conjunctivae normal Neck: Neck: normal visual inspection and full ROM Chest: Chest palpation & inspection: normal inspection of the chest and no tenderness Resp: Effort & Inspection: normal respiratory effort Auscultation: clear to auscultation bilaterally Cardio: Rate: regular rate Rhythm: regular rhythm GI: GI Palp: No abdominal tenderness and Yes Soft to palpation Skin: General skin exam: normal color and turgor normal Neuro: General: oriented to person, oriented to place, oriented to time and patient oriented x3 Cognition (Neuro): normal cognition Extrem: General: normal to inspection, full ROM and no pedal edema Psych:
--- NOTE | 2020-02-08 12:34 | PC.NURSE ---
Patient cleaned up and fresh linen placed. Moderate amount of brown/yellowish stool over buttock, perineum, and legs. Extremely excoriated. C/o buttock being sore. Cleaned with soap and water, patted dry. Barrier cream applied. Water offered per patient's request; EDP okayed drink.
[2020-02-08] MEDS: SODIUM CHLORIDE 0.9% IV 1,000 ML 999 ML IV CONT (12:35)
[2020-02-08 12:38] LABS: Basophils Percent Auto 0.4 % (0.2-1.2); Eosinophils Absolute Auto 0.1 K/mm3 (0-0.3); Eosinophils Percent Auto 0.7 % (0-4.4); Hematocrit 38.7 % (37.0-47.0); Hemoglobin 12.9 g/dL (12.0-15.0); Immature Granulocyte Absolute 0.06 K/mm3 (0.00-0.031); Immature Granulocyte Percent A 0.7 % (0-0.5); Lymphocytes Percent Auto 14.1 % (18.3-44.2); Mean Corpuscular HGB Conc 33.3 g/dl (32-36); Mean Corpuscular Hemoglobin 28.9 pg (26-34); Mean Corpuscular Volume 86.6 fl (80-100); Mean Platelet Volume 8.7 fl (7.4-10.4); Monocytes Absolute Auto 0.8 K/mm3 (0.1-0.6); Monocytes Percent Auto 9.2 % (2.6-8.5); Neutrophils Absolute Auto 6.4 K/mm3 (1.3-6.7); Neutrophils Percent Auto 74.9 % (45.5-73.1); Platelet Count Result 331 k/mm3 (150-375); Red Blood Count 4.47 M/mm3 (4.2-5.4); Red Cell Distribution Width 13.5 % (11.5-14.5); White Blood Count 8.5 K/mm3 (4.5-10.0)
[2020-02-08 12:57] LABS: Alanine Aminotransferase 32 U/L (4-35); Albumin Level 3.9 g/dL (3.5-5.1); Alkaline Phosphatase 84 U/L (38-126); Aspartate Amino Transferase 45 U/L (14-36); Bilirubin,Total 0.4 mg/dL (0.2-1.3); Blood Urea Nitrogen 9 mg/dL (7-17); Calcium 9.5 mg/dL (8.4-10.2); Carbon Dioxide 29 mmol/L (22-30); Chloride 99 mmol/L (98-107); Estimated CRCL calculation 57 ml/min; Estimated Glomerular Filt Rate > 60; Glucose 118 mg/dL (65-105); Potassium 3.7 mmol/L (3.4-5.0); Sodium 135 mmol/L (137-145)
[2020-02-08 13:15] LABS: Add Urine Microscopic? YES; Appearance Urine Clear (Clear); Bilirubin Urine Negative (Negative); Blood Urine Negative (Negative); Color Urine Yellow (Yellow); Glucose Urine UA Negative (Negative); Ketones Urine 1+ mg/dL (Negative); Leukocyte Esterase Ur Trace LEU/UL (Negative); Mucus Urine Rare /lpf; Nitrate Urine Negative (Negative); Protein Urine 1+ mg/dL (Negative); Specific Grav Ur 1.016 (1.001-1.035); Squamous Epithelial Cell Urine Many /hpf (Few); Urobilinogen Urine Negative mg/dL (<2.0)
--- NOTE | 2020-02-08 16:12 | PC.NURSE ---
changed patient she had small BM
--- NOTE | 2020-02-08 16:59 | PC.NURSE ---
Meal tray ordered.
--- NOTE | 2020-02-08 18:06 | PC.NURSE ---
admitted to room 254 from the ER with complaints of diarrhea and weakness,resting in bed. Instructed to call for assistance as needed call light in reach. Oriented to unit,pt was discharged 2 days ago.
[2020-02-08] MEDS: ACETAMINOPHEN 325 MG TABLET 650 MG PO (20:32)
--- NOTE | 2020-02-08 21:03 | PM.IMHP ---
H&P: HPI History of Present Illness Chief complaint: weakness/diarrhea Narrative: Chayito Grimm is a 79 year old female her lives home alone. The patient was just discharged from here on 02/05/2020. The patient had been here and was treated for pneumonia and sent home on Omnicef which dropped her last day of Omnicef.She came in today with complaints of diarrhea and stated that she has watery stools at least 5 times a day. She also has some nausea. The patient was admitted here on 02/02/2020. Where she also had generalized weakness. The patient did complain of feeling depressed since her only child June 2019. She was hoping to get in to [facility]. She has anxiety and depression. She has not had a colonoscopy for [address] Candelaria in the past. She did not notice any blood in her stool. patient was having loose stools when she was here admitted the last couple days and was started on floor star. Stool cultures were obtained at that time. She also had a CT of her abdomen on the of this month due to the diarrhea and pain and there was no source of infection her stool testing was negative at that time. She was negative for covid 19 at that time as [address]. [address] of the abdomen and pelvis was read as bilateral lower lobe airspace disease, right greater than left, consistent with pneumonia. Findings improved since prior CT. Small right pleural effusion. Mild bladder wall thickening which could be due to under distended or cystitis. Correlate with UA read as interval progression of bibasilar airspace disease, compatible with pneumonia. Stool culture was sent and patient was started on IV fluids. Date of service 02/08/2020 Review of Systems Review of Systems: All systems reviewed & are unremarkable except as noted in HPI and below Constitutional: Constitutional: Reports as per HPI and Reports no additional constitutional complaints Eyes: Eyes: Reports as per HPI and Reports no additional eye complaints ENT: Reports system reviewed and no additional complaints, except as documented and Reports Normal hearing present Cardiovascular: Cardiovascular: Reports no additional cardiovascular complaints Respiratory: Respiratory: Reports no additional respiratory complaints and Reports no additional respiratory complaints Gastrointestinal: Gastrointestinal: Reports as per HPI and Reports no additional gastrointestinal complaints Musculoskeletal: Musculoskeletal: Reports no additional musculoskeletal complaints Integumentary/Breasts: Skin/Breast: Reports system reviewed and no additional complaints, except as docu and Reports as per HPI Neurologic: Reports system reviewed and no additional complaints, except as documented, Reports as per HPI and Reports Normal hearing present Psychiatric: Psychiatric: Reports no additional psychiatric complaints and Reports as per HPI Endocrine: Endocrine: Reports no additional endocrine complaints Hematologic/Lymphatic: Hematologic/Lymphatic: Reports no additional hematologic/lymphatic complaints Allergic/Immunologic: Allergic/Immunologic: Reports no additional allergic/immunologic complaints PENDING SALE TO [facility] Past Medical History Medical History (Updated 02/08/20 @ 21:09 by Nora Reyes NP) Depression with anxiety Gastroesophageal reflux disease Obstructive sleep apnea She does not use a CPAP. Rheumatic fever In childhood. Suspected COVID-19 virus infection Surgical History Surgical History History of appendectomy History of tonsillectomy and adenoidectomy Family History Family History Sibling Family history of malignant neoplasm of ovary Sister Acute myocardial infarction Another sister Mother PNA (pneumonia) Social History Social History (Updated 02/08/20 @ 21:10 by Nora Reyes NP) Social History: The patient lives i
[2020-02-08] MEDS: PANTOPRAZOLE 40 MG TABLET PO (22:02)
[2020-02-08] MEDS: SACCHAROMYCES BOULARDII 250 MG CAPSULE PO (22:03)
[2020-02-08] MEDS: ALPRAZOLAM 0.25 MG TABLET PO (22:45)
[2020-02-08] MEDS: CHOLESTYRAMINE (W/ SUGAR) 4 GM POWD.PACK PO (22:46)
--- NOTE | 2020-02-09 | ECHO_ITS ---
Patient Info Name: Chayito Grimm Age: 79 years : 1940 Gender: Female Ht: 65 in Wt: 142 lbs BSA: 1.73 m2 HR: 90 bpm BP: 143 / 63 mmHg Technical Quality: Fair Exam Date: 02/09/2020 10:57 AM Exam Location: [facility] Patient Status: Outpatient Admit Date: 02/08/2020 Staff Ordering Physician: Nora Reyes NP Correctional Case Manager: Therese Cooley RDCS Attending Provider: Kathi Ramirez MD Referring Physician: Eric HURTADO; Exam Type: CA echo doppler color flow Study Info Indications R01.1 - Cardiac murmur, unspecified Complete two-dimensional, color flow and Doppler transthoracic echocardiogram is performed. Summary 1. Left ventricular systolic function is normal, estimated at 60-65%. 2. There is mildly increased left ventricular wall thickness. 3. The left ventricular diastolic function is grade I diastolic dysfunction. 4. E/e' 18.0 is elevated. 5. There is mild mitral valve calcification. 6. There is moderate aortic valve calcification. 7. There is no aortic valve regurgitation. 8. There is mild aortic valve stenosis with a peak velocity of 194 cm/s, mean gradient of 9 mmHg, and aortic valve area of 1.9 cm2. 9. There is mild tricuspid valve regurgitation. 10. No pulmonary hypertension, estimated pulmonary arterial systolic pressure is 32 mmHg. Left Ventricle Left ventricular chamber dimension is normal. Left ventricular systolic function is normal, estimated at 60-65%. There is mildly increased left ventricular wall thickness. Left ventricular septal wall motion is normal. The left ventricular diastolic function is grade I diastolic dysfunction. E/e' 18.0 is elevated. Right Ventricle Right ventricular chamber dimension is normal. Right ventricular systolic function is normal. Left Atria Left atrial chamber dimension is normal. Right Atria Right atrial chamber dimension is normal. Atrial Septum Intact interatrial septum visualized by color flow imaging. Aortic Valve The aortic valve is trileaflet. There is no aortic valve sclerosis. There is mild aortic valve stenosis with a peak velocity of 194 cm/s, mean gradient of 9 mmHg, and aortic valve area of 1.9 cm2. There is no aortic valve regurgitation. There is moderate aortic valve calcification. Pulmonic Valve The pulmonic valve is normal. There is no pulmonic valve stenosis. There is no pulmonic regurgitation. Mitral Valve The mitral valve has normal leaflets. There is no mitral valve stenosis. There is no mitral valve regurgitation. There is mild mitral valve calcification. Tricuspid Valve The tricuspid valve leaflets are normal. There is no significant tricuspid valve stenosis. There is mild tricuspid valve regurgitation. No pulmonary hypertension, estimated pulmonary arterial systolic pressure is 32 mmHg. Pericardium/Pleural The pericardium appears normal. There is no pericardial effusion. Inferior Vena Cava Normal inferior vena cava with <50% collapse upon inspiration consistent with elevated right atrial pressure, 10 mmHg. Aorta The aortic root size at the sinus of Valsalva is normal. The prox ascending aorta size is normal. Left Ventricular Outflow Tract Name Value Normal LVOT 2D
[2020-02-09 05:19] LABS: Basophils Percent Auto 0.5 % (0.2-1.2); Eosinophils Absolute Auto 0.2 K/mm3 (0-0.3); Eosinophils Percent Auto 2.8 % (0-4.4); Hematocrit 37.3 % (37.0-47.0); Hemoglobin 12.4 g/dL (12.0-15.0); Immature Granulocyte Absolute 0.05 K/mm3 (0.00-0.031); Immature Granulocyte Percent A 0.7 % (0-0.5); Lymphocytes Absolute Auto 1.34 K/mm3 (0.9-3.2); Lymphocytes Percent Auto 17.7 % (18.3-44.2); Mean Corpuscular HGB Conc 33.2 g/dl (32-36); Mean Corpuscular Hemoglobin 28.6 pg (26-34); Mean Corpuscular Volume 86.1 fl (80-100); Mean Platelet Volume 8.8 fl (7.4-10.4); Monocytes Absolute Auto 0.9 K/mm3 (0.1-0.6); Neutrophils Percent Auto 66.3 % (45.5-73.1); Platelet Count Result 303 k/mm3 (150-375); Red Blood Count 4.33 M/mm3 (4.2-5.4); Red Cell Distribution Width 13.4 % (11.5-14.5); White Blood Count 7.6 K/mm3 (4.5-10.0)
[2020-02-09 05:41] VITALS: BP 143/63; PULSE 90; RESP 16; TEMP 36.2; O2SAT 94
[2020-02-09 05:49] LABS: Alanine Aminotransferase 23 U/L (4-35); Albumin Level 3.4 g/dL (3.5-5.1); Alkaline Phosphatase 71 U/L (38-126); Aspartate Amino Transferase 29 U/L (14-36); Bilirubin,Total 0.2 mg/dL (0.2-1.3); Blood Urea Nitrogen 8 mg/dL (7-17); CRP 10.5 mg/dL (<1.0); Carbon Dioxide 26 mmol/L (22-30); Chloride 103 mmol/L (98-107); Estimated CRCL calculation 57 ml/min; Estimated Glomerular Filt Rate > 60; Glucose 107 mg/dL (65-105); Magnesium 1.9 mg/dL (1.6-2.3); Potassium 3.4 mmol/L (3.4-5.0); Sodium 135 mmol/L (137-145)
[2020-02-09 07:43] VITALS: BP 185/77; PULSE 67; RESP 20; TEMP 36.1; O2SAT 94
[2020-02-09] MEDS: POTASSIUM CHLORIDE 20 MEQ TABLET 40 MEQ PO (08:14)
[2020-02-09] MEDS: PANTOPRAZOLE 40 MG TABLET PO ×2 (08:14→20:20)
[2020-02-09] MEDS: SACCHAROMYCES BOULARDII 250 MG CAPSULE PO ×3 (08:14→17:48)
[2020-02-09] MEDS: VENLAFAXINE HCL XR 75 MG CAP.ER.24H 150 MG PO (08:14)
[2020-02-09] MEDS: ACETAMINOPHEN 325 MG TABLET 650 MG PO (08:36)
--- NOTE | 2020-02-09 09:39 | WPDGICN ---
Assessment and Plan Assessment and plan (1) Diarrhea: Qualifiers: Diarrhea type: unspecified type Qualified Code(s): R19.7 - Diarrhea, unspecified Code(s): R19.7 - Diarrhea, unspecified Status: Acute Assessment and Plan: Diarrhea for the last month. May be functional. Given her recent admission with diarrhea and antibiotic use suspect this could be related to medications, alternatively C difficile infection needs to be excluded. Plan is for stool cultures including C diff toxin analysis. Agree with trial of Questran for possible irritable bowel syndrome. If diarrhea persists a colonoscopy will be arranged. (2) Gastroesophageal reflux disease: Code(s): K21.9 - Gastro-esophageal reflux disease without esophagitis Status: Chronic (3) Depression with anxiety: Code(s): F41.8 - Other specified anxiety disorders Status: Chronic (4) History of colon polyps: Code(s): Z86.010 - Personal history of colonic polyps Status: Acute Assessment and Plan: Patient has a history of colon polyps several years ago. If diarrhea persists follow-up colonoscopy will be arranged also for this reason. We will follow with you for the immediate future. GI Consult Note Consult date/time: 02/09/20 09:39 HPI: Chayito Grimm is a 79 year old female Seen in evaluation at the request of the hospitalist service. Patient has complaints of diarrhea for 1 month. Patient reports being hospitalized 1 week ago with pneumonia. She improved and was discharged on 02/05/2020. She states that she continue have diarrhea at home became quite concerned, called the ambulance yesterday prompting her to return to the emergency room. She subsequently was admitted the hospital. Patient she reports that she typically has diarrhea described as a watery stool 1 time a day. Although other notes of described up to several times a day. She denies any bleeding. She denies any fever. She denies any weight loss. Patient reports no diarrhea since admission. She was started on Questran. She has not yet had a normal stool. She does report a significant amount of anxiety since the of her son at the end of 2018. Her son had quadriplegia and required extensive care. in the past she was told that she had GE reflux disease. She has a very distant history of rheumatic fever. Several years ago patient had colonoscopy in colon polyps were identified. Review of Systems Review of Systems: All systems reviewed & are unremarkable except as noted in HPI and below PMFSH Past Medical History Medical History Depression with anxiety Gastroesophageal reflux disease Obstructive sleep apnea She does not use a CPAP. Rheumatic fever In childhood. Suspected COVID-19 virus infection Surgical History Surgical History History of appendectomy History of tonsillectomy and adenoidectomy Family History Family History Sibling Family history of malignant neoplasm of ovary Sister Acute myocardial infarction Another sister Mother PNA (pneumonia) Social History Social History Social History: The patient lives in her own home in [place], [place]. She has an orange cat named terrence that lives at home with her. Her only child, son Lam, in June 2019. 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 She smoked about a pack of cigarettes per day and quit many years ago. She denies alcohol and illicit substance use. She designates her ex-, Familia Grimm, and a friend named Inocencia as her surrogate decision makers. She wishes to be a full code. Smoking packs per day: 1 Smoking cigarettes per day: 20.0
--- NOTE | 2020-02-09 09:53 | PM.IMPN ---
Progress Note: A&P Assessment and Plan (1) Diarrhea: Qualifiers: Diarrhea type: unspecified type Qualified Code(s): R19.7 - Diarrhea, unspecified Code(s): R19.7 - Diarrhea, unspecified Status: Chronic Assessment and Plan: Patient describes 1 month of diarrhea; some notes describe 4 to 5 episodes of diarrhea daily however she describes 1-2 episodes daily to me. She was treated with antibiotics last week for pneumonia and was started on Florastor at that time. Diarrhea preceded abx. CT abd/pel without any wall thickening or diverticulitis. Questran was added last night. She remains on Florastor. ABx were stopped. Stool studies pending. Last colonoscopy several years ago demonstrated polyps. Dr Candelaria consulted - appreciate recommendations. Colonoscopy in AM. (2) Generalized weakness: Code(s): R53.1 - Weakness Status: Acute Assessment and Plan: Patient lives home alone. Recent discharge home health was arranged but hadn't come to the house yet. Pt declined placement at that time. Continue PT/OT. Patient has limited SNF options due to insurance and she is not sure if she wants to go, mentioned she may pay for private duty + . Continue PT/OT. Ambulated 30' in room CGA. (3) Gastroesophageal reflux disease: Qualifiers: Esophagitis presence: esophagitis presence not specified Qualified Code(s): K21.9 - Gastro-esophageal reflux disease without esophagitis Code(s): K21.9 - Gastro-esophageal reflux disease without esophagitis Status: Chronic Assessment and Plan: Continue protonix. (4) Depression with anxiety: Code(s): F41.8 - Other specified anxiety disorders Status: Chronic Assessment and Plan: Worsened after the loss of her son in June. Continue with Xanax and Effexor. (5) Heart murmur: Code(s): R01.1 - Cardiac murmur, unspecified Status: Chronic Assessment and Plan: With distant history of rheumatic fever echocardiogram was ordered. Mild noted. (6) Pneumonia: Qualifiers: Pneumonia type: due to unspecified organism Laterality: unspecified laterality Lung location: unspecified part of lung Qualified Code(s): J18.9 - Pneumonia, unspecified organism Code(s): J18.9 - Pneumonia, unspecified organism Status: Resolved Assessment and Plan: Admitted 02/01-02/04 for treatment of pneumonia. She completed 7-day course of antibiotics. Evidence of pneumonia still noted on CXR however her symptoms have resolved. No evidence of respiratory distress; tolerating room air. COVID negative 02/01. Subjective Date/time seen: 02/09/20 09:15 Interval history: Ms. Grimm is an 79yo F admitted for diarrhea and weakness. Patient was recently admitted here 02/01 - 02/04 treated for pneumonia. She reports diarrhea over the last 1 month. She reports some intermittent abdominal cramping and liquid BM once or twice daily. She denies hematochezia or melena. No nausea or vomiting. She reports poor appetite and increased stress since her son in June. She becomes tearful. She denies chest pain, shortness of breath, or cough. No diarrhea yet today. Review of Systems Review of Systems: Narrative: Twelve systems were reviewed with pertinent positives and negatives as per HPI. Exam Narrative: Exam Narrative: General: Elderly female resting supine in bed in no acute distress. Tearful. HEENT: Normocephalic, EOMI, oral mucosa tacky, poor dentition. Cardiovascular: Rate and rhythm are regular. Systolic murmur heard over left sternal border. Respiratory: Lungs CTA; nonlabored breathing; tolerating room air. Abdomen: Soft, mild left-sided abdominal discomfort to palpation without guarding, non-distended, bowel sounds are pre
[2020-02-09 10:00] VITALS: BP 140/83; PULSE 70; RESP 16; TEMP 36.4; O2SAT 97
[2020-02-09] MEDS: CHOLESTYRAMINE (W/ SUGAR) 4 GM POWD.PACK PO (10:09)
[2020-02-09 13:18] VITALS: BMI 23.6
[2020-02-09 14:00] VITALS: BP 155/90; PULSE 67; RESP 18; TEMP 36.4; O2SAT 95
[2020-02-09] MEDS: PEG (High)/E-LYTE SOLN 4,000 ML BTL 4000 ML PO (14:45)
[2020-02-09 18:00] VITALS: BP 198/94; PULSE 78; RESP 16; TEMP 36.3; O2SAT 96
[2020-02-09] MEDS: AMLODIPINE BESYLATE 5 MG TABLET PO (19:04)
[2020-02-09] MEDS: ALPRAZOLAM 0.25 MG TABLET PO (20:21)
[2020-02-09 22:00] VITALS: BP 153/86; PULSE 77; RESP 16; TEMP 36.6; O2SAT 94
[2020-02-10 02:00] VITALS: BP 145/83; PULSE 87; RESP 16; TEMP 36.8; O2SAT 93
[2020-02-10 06:00] VITALS: BP 142/89; PULSE 76; RESP 18; TEMP 36.8; O2SAT 96
[2020-02-10 06:08] LABS: Blood Urea Nitrogen 4 mg/dL (7-17); Calcium 8.5 mg/dL (8.4-10.2); Carbon Dioxide 25 mmol/L (22-30); Chloride 101 mmol/L (98-107); Estimated CRCL calculation 57 ml/min; Estimated Glomerular Filt Rate > 60; Glucose 108 mg/dL (65-105); Magnesium 1.6 mg/dL (1.6-2.3); Potassium 3.7 mmol/L (3.4-5.0); Sodium 132 mmol/L (137-145)
[2020-02-10] MEDS: PANTOPRAZOLE 40 MG TABLET PO (08:24)
[2020-02-10] MEDS: AMLODIPINE BESYLATE 5 MG TABLET PO (08:24)
[2020-02-10] MEDS: VENLAFAXINE HCL XR 75 MG CAP.ER.24H 150 MG PO (08:24)
[2020-02-10] MEDS: SACCHAROMYCES BOULARDII 250 MG CAPSULE PO (08:24)
[2020-02-10 10:00] VITALS: BP 120/71; PULSE 78; RESP 16; TEMP 36.9; O2SAT 95
--- NOTE | 2020-02-10 10:04 | WPDGIPROGNO ---
Progress Note: A&P Additional Plan Patient alert and comfortable this morning. She reports having had a normal bowel movement yesterday. She denies any abdominal pain. Refused consideration for colonoscopy today. Physical exam reveals her to be alert comfortable at rest. Vital signs stable. Lungs are clear. Heart without murmur. Abdomen is soft and nontender. Labs reveal hemoglobin to be stable. Impression 1. Diarrhea noted at time of admission likely related to irritable bowel syndrome. Agree with trial of Questran. Fiber supplements may also be of some benefit. Early discharge advised. 2. Anxiety. Patient also with some depression after the recent of her son. This may contribute to her irregular bowel habits. IBS suspected. 3. Pneumonia. Patient is status post hospitalization for pneumonia last week. She may have some residual affects and shortness of breath. Plan is for early discharge if diet tolerated and primary care service agrees. Subjective Date/time seen: 02/10/20 10:04 Objective Data Vital Signs Vital Signs: Vital Signs - 24 hr 02/09/20 14:00 02/09/20 18:00 02/09/20 22:00 Temperature 36.4 C 36.3 C L 36.6 C Pulse Rate 67 78 77 Respiratory Rate 18 16 16 Blood Pressure 155/90 H 198/94 H 153/86 H Pulse Oximetry 95 96 94 02/10/20 02:00 02/10/20 06:00 Temperature 36.8 C 36.8 C Pulse Rate 87 76 Respiratory Rate 16 18 Blood Pressure 145/83 H 142/89 H Pulse Oximetry 93 96 Intake/Output Intake/Output: Intake & Output 02/07/20 02/08/20 02/09/20 02/10/20 23:59 23:59 23:59 23:59 Intake Total 1000 930 220 Output Total 100 Balance 900 930 220 Meds/Results Medications: Active Medications Generic Name Dose Route Start Last Admin Trade Name Freq PRN Reason Stop Dose Admin Acetaminophen 650 mg 02/08/20 20:08 02/09/20 08:36 Tylenol Tablet PO 650 mg Q6H PRN Administration Mild Pain (1-3) or Fever Alprazolam 0.25 mg 02/08/20 21:00 02/09/20 20:21 Xanax PO 0.25 mg TID PRN Administration anxiety Amlodipine Besylate 5 mg 02/10/20 09:00 02/10/20 08:24 Norvasc PO 5 mg QAM KAMAR Administration Cholestyramine Resin 4 gm 02/08/20 18:00 02/09/20 17:48 Questran Powder Packs PO Not Given BID@1000,1800 KAMAR Hydralazine HCl 10 mg 02/09/20 18:44 Apresoline Hcl Inj IV PUSH Q8H PRN Blood Pressure - High Pantoprazole Sodium 40 mg 02/08/20 21:00 02/10/20 08:24 Protonix PO 40 mg Q12HR KAMAR Administration Saccharomyces Boulardii 250 mg 02/08/20 17:00 02/10/20 08:24 Florastor PO 250 mg TID KAMAR Administration Venlafaxine HCl 150 mg 02/09/20 09:00 02/10/20 08:24 Effexor Xr PO 150 mg DAILY KAMAR Administration Radiology Results: ITS Impressions Chest X-Ray 02/08/20 12:46 Impression: 1: Interval progression of bibasilar airspace disease, compatible with pneumonia. Abdomen/Pelvis CT 02/08/20 13:48 IMPRESSION: 1. Bilateral lower lobe airspace disease, right greater than left, consistent with pneumonia. Findings improved since prior CT. 2: Small right pleural effusion. 3: Mild bladder wall thickening which may be due to underdistention or cystitis. Consider correlation with urinalysis. Labs Labs: Laboratory Results - last 24 hr 02/10/20 05:24 Sodium 132 L Potassium 3.7 Chloride 101 Carbon Dioxide 25 BUN 4 L Creatinine 0.60 L Estim Creat Clear Calc 57 Estimated GFR > 60 Glucose 108 H Calcium 8.5 Magnesium 1.6
[2020-02-10] MEDS: CHOLESTYRAMINE (W/ SUGAR) 4 GM POWD.PACK PO (10:24)
--- NOTE | 2020-02-10 11:17 | PM.DS ---
DS: Admitting Diagnosis Admitting Diagnosis Admitting Diagnosis: Weakness DS: Discharge Diagnosis Discharge Diagnosis (1) Diarrhea: Qualifiers: Diarrhea type: unspecified type Qualified Code(s): R19.7 - Diarrhea, unspecified Code(s): R19.7 - Diarrhea, unspecified Status: Chronic Assessment and Plan: -------Patient describes 1 month of diarrhea which worsened with her abx last week. She was started on florastor, fiber, and Questran which improved her diarrhea. GI saw the patient and wanted to do a colonoscopy but pt refused. Abd cT showed improving PNA (pt still has not finished tx) with small right pleural effusion with mild bladder wall thickening. UA not suspicious for UTI and pt had no symptoms of UTI. She underwent a stool cx for her diarrhea which was negative. Pt is going to follow up with Dr. Teagan avendano and has not had much diarrhea the day of discharge. (2) Generalized weakness: Code(s): R53.1 - Weakness Status: Acute Assessment and Plan: -----Improved, will go home with home health. (3) Gastroesophageal reflux disease: Qualifiers: Esophagitis presence: esophagitis presence not specified Qualified Code(s): K21.9 - Gastro-esophageal reflux disease without esophagitis Code(s): K21.9 - Gastro-esophageal reflux disease without esophagitis Status: Chronic Assessment and Plan: -----No symptoms of this. PPI stopped (4) Depression with anxiety: Code(s): F41.8 - Other specified anxiety disorders Status: Chronic Assessment and Plan: -----Worsened after the loss of her son in June. Continue with Xanax and Effexor. (5) Heart murmur: Code(s): R01.1 - Cardiac murmur, unspecified Status: Chronic Assessment and Plan: ------With distant history of rheumatic fever echocardiogram was ordered. Mild noted. (6) Pneumonia: Qualifiers: Pneumonia type: due to unspecified organism Laterality: unspecified laterality Lung location: unspecified part of lung Qualified Code(s): J18.9 - Pneumonia, unspecified organism Code(s): J18.9 - Pneumonia, unspecified organism Status: Resolved Assessment and Plan: -----Admitted 02/01-02/04 for treatment of pneumonia. She will complete the rest of her 7-day course of antibiotics. Evidence of pneumonia still noted on CXR however her symptoms have resolved. No evidence of respiratory distress; tolerating room air. COVID negative 02/01. (7) Hypertension: Code(s): I10 - Essential (primary) hypertension Status: Acute Assessment and Plan: -----Pts bp was continuously elevated and she was started on 5mg of norvasc. follow up with pcp. bp at discharge 120/71. DS: Summary Hospital Course Reason for hospitalization: Diarrhea Hospital Course: Patient is an 79-year-old female who presented emergency room for diarrhea after previously being hospitalized for pneumonia. White blood cell count normal, hemoglobin normal, kidney function normal. CT did not show any abnormality in the abdomen and pelvis related to the diarrhea. She had stool cultures which were negative. Patient was admitted to the hospitalist service and her diarrhea improved. Please see above for further details. Patient was educated about the worrisome signs and symptoms come back to emergency room for was discharged stable condition. Status at Discharge Overall status at discharge: patient is back to baseline Time Spent with Patient Time attestation: Total time spent providing and/or coordinating discharge services:32 min Time spent: Greater than 30 minutes Exam Narrative: Exam Narrative: General: Well developed well nourished patient in NAD HEENT: normocephalic Neck: supple Neuro: Alert and oriented x4 CV:RRR with slight systolic murmur Resp:CTA Abd: Soft, non distended. No pain to palpation. Positive bowel sounds Extremiti
== END 2020-02-10 15:26 | disposition home health service (06) ==
LOC: ANHED 16:44 → ANH2MED 17:34
PROVIDERS: Nurse Practitioner; Physician Assistant; Admitting Provider Family Medicine; Emergency Provider Emergency Medicine; PCP Emergency Medicine; Visit Provider Internal Medicine
DX: R19.7 Diarrhea, unspecified (principal); R53.1 Weakness; K21.9 Gastro-esophageal reflux disease without esophagitis; G47.33 Obstructive sleep apnea (adult) (pediatric); R01.1 Cardiac murmur, unspecified; F41.8 Other specified anxiety disorders; Z87.01 Personal history of pneumonia (recurrent); Z87.891 Personal history of nicotine dependence
CPT/HCPCS: 36415; 51701; 71045; 74177; 80048; 80053; 81001; 83605; 83735; 84443; 85025; 86140; 93306; 96360; 97110; 97116; 97161; 97165; 99285; A9270; G0378; J7030; Q9967

== ENCOUNTER 2020-03-11 12:21 | Emergency (ER) | payer OTHER, SELFPAY ==
[2020-03-11] VITALS (8 sets, daily range): BP systolic 132–189; BP diastolic 70–109; PULSE 71–80; RESP 14–17; TEMP 36.6; O2SAT 94–98
--- NOTE | ~2020-03-11 | CT_ITS ---
EXAMINATION: CT brain wo con DATE: 03/11/2020 13:27 INDICATION: Confusion. TECHNIQUE: Computed tomography (CT) of the head was performed without intravenous contrast. The mA wa s adjusted according to patient size. Iterative reconstruction technique was employed. The dose-lengt h product was 605.33 mGy-cm. COMPARISON: Head CT 08/07/2018, brain MRI 11/06/2018 FINDINGS: There are old infarcts in the bilateral basal ganglia. There is a small area of cystic ence phalomalacia in the right frontoparietal deep white matter. There are scattered areas of low attenuat ion in the cerebral white matter. There is no intracranial hemorrhage, acute infarction, or abnormal intracranial mass lesion. The ventricles are normal in size. The orbits are normal. The paranasal sin uses are clear. The mastoid air cells are normal. IMPRESSION: 1. 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 Small area of cystic encephalomalacia in the r ight frontoparietal deep white matter. 2. Worsened extensive nonspecific cerebral white matter disease, which likely represents chronic smal l vessel ischemic disease. Reviewed, dictated and finalized at location A. IMPRESSION: 1. 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 Small area of cystic enc ephalomalacia in the right frontoparietal deep white matter. 2. Worsened extensive nonspecific cerebral white matter disease, which likely r epresents chronic small vessel ischemic disease.
--- NOTE | 2020-03-11 12:25 | ECG_ITS ---
Measurements Intervals [place] Rate: 69 P: 5 IN: 171 QRS: -17 QRSD: 98 T: 33 QT: 398 QTc: 428 Interpretive Statements SINUS RHYTHM BORDERLINE R WAVE PROGRESSION, ANTERIOR LEADS INFERIOR INFARCT, AGE INDETERMINATE NONSPECIFIC ST & T-WAVE ABNORMALITY- LAT/HIGH LAT LEADS BASELINE ARTIFACT- I, II, AVR, AVL, AVF ABNORMAL ECG Electronically Signed On 03-11-2020 13:15:29 CDT by Zan Díaz D.O.
[2020-03-11 12:55] LABS: Basophils Percent Auto 0.5 % (0.2-1.2); Eosinophils Absolute Auto 0.4 K/mm3 (0-0.3); Hematocrit 37.1 % (37.0-47.0); Hemoglobin 12.2 g/dL (12.0-15.0); Immature Granulocyte Absolute 0.02 K/mm3 (0.00-0.031); Immature Granulocyte Percent A 0.3 % (0-0.5); Lymphocytes Percent Auto 24.1 % (18.3-44.2); Mean Corpuscular HGB Conc 32.9 g/dl (32-36); Mean Corpuscular Hemoglobin 27.9 pg (26-34); Mean Corpuscular Volume 84.9 fl (80-100); Monocytes Absolute Auto 0.7 K/mm3 (0.1-0.6); Monocytes Percent Auto 11.7 % (2.6-8.5); Neutrophils Absolute Auto 3.3 K/mm3 (1.3-6.7); Neutrophils Percent Auto 56.4 % (45.5-73.1); Platelet Count Result 197 k/mm3 (150-375); Red Blood Count 4.37 M/mm3 (4.2-5.4); Red Cell Distribution Width 14.3 % (11.5-14.5); White Blood Count 5.8 K/mm3 (4.5-10.0)
[2020-03-11 13:10] LABS: Alanine Aminotransferase 16 U/L (4-35); Albumin Level 3.7 g/dL (3.5-5.1); Alkaline Phosphatase 72 U/L (38-126); Anion Gap 13.2 mmol/L (7-16); Aspartate Amino Transferase 24 U/L (14-36); Bilirubin,Total 0.4 mg/dL (0.2-1.3); Blood Urea Nitrogen 9 mg/dL (7-17); Calcium 8.8 mg/dL (8.4-10.2); Carbon Dioxide 25 mmol/L (22-30); Chloride 103 mmol/L (98-107); Estimated CRCL calculation 57 ml/min; Estimated Glomerular Filt Rate > 60; Glucose 190 mg/dL (65-105); Potassium 3.2 mmol/L (3.4-5.0); Sodium 138 mmol/L (137-145)
--- NOTE | 2020-03-11 13:19 | ED.AMS ---
HPI - Altered Mental Status General Chief Complaint: Altered Mental Status <Leif Rivera PA-C - Last Filed: 03/11/20 17:54> Stated Complaint: confusion <Leif Rivera PA-C - Last Filed: 03/11/20 17:54> Time Seen by Provider: 03/11/20 13:12 <Leif Rivera PA-C - Last Filed: 03/11/20 17:54> Source: patient, EMS, RN notes reviewed, old records reviewed and other <Leif Rivera PA-C - Last Filed: 03/11/20 17:54> Mode of arrival: EMS <Leif Rivera PA-C - Last Filed: 03/11/20 17:54> Limitations: no limitations <Leif Rivera PA-C - Last Filed: 03/11/20 17:54> History of Present Illness HPI narrative: Patient is an 79-year-old female who presents to emergency department for evaluation of altered mentation and confusion patient lives at home by herself department of elderly and human services reportedly were at the house and contacted EMS wanting the patient to be sent in for evaluation. On arrival patient is in the room in no distress resting comfortably alert and oriented x3 patient was recently seen in the emergency department and started on antibiotics and sent home for urinary tract infection. Patient has no complaints upon arrival <Leif Rivera PA-C - Last Filed: 03/11/20 17:54> Related Data Home Medications: Home Medications Medication Instructions Recorded Confirmed venlafaxine [Effexor XR] 150 mg PO DAILY 02/02/20 02/08/20 <Leif Rivera PA-C - Last Filed: 03/11/20 17:54> Allergies/Adverse Reactions: Allergies Allergy/AdvReac Type Severity Reaction Status Date / Time No Known Allergies Allergy Verified 03/11/20 12:29 <Leif Rivera PA-C - Last Filed: 03/11/20 17:54> Review of Systems Review of Systems: All systems reviewed & are unremarkable except as noted in HPI and below <Leif Rivera PA-C - Last Filed: 03/11/20 17:54> PMFSH Past Medical History Medical History: Medical History Depression with anxiety Gastroesophageal reflux disease Obstructive sleep apnea She does not use a CPAP. Rheumatic fever In childhood. Suspected COVID-19 virus infection <Leif Rivera PA-C - Last Filed: 03/11/20 17:54> Surgical History Surgical History: Surgical History History of appendectomy History of tonsillectomy and adenoidectomy <Leif Rivera PA-C - Last Filed: 03/11/20 17:54> Social History Social History: Social History Social History: The patient lives in her own home in [place], [place]. She has an orange cat named terrence that lives at home with her. Her only child, son Lam, in June 2019. 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 She smoked about a pack of cigarettes per day and quit many years ago. She denies alcohol and illicit substance use. She designates her ex-, Familia Grimm, and a friend named Inocencia as her surrogate decision makers. She wishes to be a full code. Smoking packs per day: 1 Smoking cigarettes per day: 20.0 Years smoked: 40 Smoking pack-years: 40.00 Smoking status: Former smoker Tobacco type: cigarettes Smoking end date: 02/08/20 Alcohol intake: never Substance use: never Gender identity (if verbalized by the patient): Female Spiritual care concerns: No <Leif Rivera PA-C - Last Filed: 03/11/20 17:54> Exam Narrative: Exam Narrative: GENERAL: Well-appearing, well-nourished, and in no acute distress. HEAD: Normocephalic, atraumatic. EYES: PERRLA and EOMI. ENT: Nares clear, no rhinorrhea or epistaxis. Mucous membranes dry. CHEST: Clear to auscultation. No respiratory distress. No wheezes rales or rhonchi HEART: Regular rate and rhythm. No murmur heard. EXTREMITIES: Normal r
[2020-03-11 13:29] LABS: Add Urine Microscopic? NO; Appearance Urine Clear (Clear); Bilirubin Urine Negative (Negative); Blood Urine Negative (Negative); Color Urine Yellow (Yellow); Glucose Urine UA Negative (Negative); Ketones Urine Negative (Negative); Leukocyte Esterase Ur Negative LEU/UL (Negative); Nitrate Urine Negative (Negative); Protein Urine Negative (Negative); Urobilinogen Urine Negative mg/dL (<2.0)
--- NOTE | 2020-03-11 13:37 | PC.NURSE ---
DFS WOULD LIKE TO BE CALLED IF THE PT HAS BEEN ADMITTED TO THE FLOOR [facility] [phone]
[2020-03-11] MEDS: LACTATED RINGERS 1,000 ML 999 ML IV CONT (14:14)
--- NOTE | 2020-03-11 14:57 | PC.NURSE ---
Meal tray ordered for patient at this time.
--- NOTE | 2020-03-11 14:59 | PCCCNOTE ---
Spoke with ANN MARIE re: Placement of patient. Patient has been approved to move into [facility], pending bank statements and housing statements. They have not rec'd the statements and patient has not belongings at their facility. Contacted the DOA: Milli Brewer ([phone]). Patient to be d/c'd home and DOA will follow up with patient at her home. Patient is also involved with [employer] (Juliette Jayjay [phone]). All are concerned re: patients ability to take care of herself. Verified with Lia at [facility] that they are needing paperwork before patient can move in. Patient to be d/c'd home with DOA following up. Provided cab voucher for transport home.
--- NOTE | 2020-03-11 16:56 | PC.NURSE ---
PT HARD TO AROUSE, PT GIVEN FOOD TRAY, UNABLE TO AROUSE ENOUGH TO EAT. PROVIDER AWARE, AWAITING ORDERS.
== END 2020-03-11 20:15 | disposition home or self-care (01) ==
PROVIDERS: Emergency Provider Emergency Medicine; PCP Emergency Medicine
DX: F01.50 Vascular dementia, unspecified severity, without behavioral disturbance, psychotic disturbance, mood disturbance, and anxiety (principal); F41.8 Other specified anxiety disorders; K21.9 Gastro-esophageal reflux disease without esophagitis; G47.33 Obstructive sleep apnea (adult) (pediatric); Z87.891 Personal history of nicotine dependence; R94.31 Abnormal electrocardiogram [ECG] [EKG]
CPT/HCPCS: 36415; 51701; 70450; 80053; 81003; 85025; 93005; 99284; J7120

== ENCOUNTER 2020-03-17 09:42 | Observation (INO) | payer OTHER, SELFPAY ==
[2020-03-17] VITALS (8 sets, daily range): BP systolic 134–158; BP diastolic 68–92; PULSE 64–83; RESP 14–20; TEMP 36.5–36.6; O2SAT 94–98; BMI 23.6
--- NOTE | ~2020-03-17 | XR_ITS ---
EXAMINATION: XR hip BI 2V w AP pelvis EXAM DATE: 03/17/2020 11:01 INDICATION: Initial encounter following injury, with pain of the pelvis, hips. TECHNIQUE: Each hip imaged independently (separate right and also left hip) 'frog leg' and frontal p rojections for interpretation. Frontal projection pelvis. There is no prior study for comparison. FINDINGS: No radiographic evidence of hip avascular necrosis. There is mild to moderate symmetric bi lateral hip primary osteoarthritis. There are no acute fractures or dislocations identified. There i s no subcutaneous gas. The soft tissue is unremarkable. There are no radiopaque foreign bodies. IMPRESSION: No acute osseous findings. Reviewed, dictated and finalized at location A. IMPRESSION: No acute osseous findings.
--- NOTE | ~2020-03-17 | CT_ITS ---
EXAMINATION: CT cervical spine wo con, CT brain wo con EXAM DATE: 03/17/2020 10:42 (accession [id number]), 03/17/2020 10:43 (accession [id number]) INDICATION: Fell yesterday, posterior neck pain. Head injury. TECHNIQUE: Spiral CT of the head was performed without contrast. Axial, coronal and sagittal images were reviewed. Spiral CT of the cervical spine was performed without contrast. Axial images were rev iewed. Coronal and sagittal reformatted images were also reviewed. The dose-length product (DLP) fo r this examination was 173.10 (accession [id number]), 605.33 (accession [id number]) mGy-cm. The exposure was tailored according to patient size, and iterative reconstruction (ASIR) was used as additional dose reduction technique. There is no prior study for comparison. FINDINGS: HEAD CT: There are punctate old bilateral basal ganglia lacunar infarctions. There is no acute intrap arenchymal hemorrhage. No evidence of intraparenchymal brain mass lesion. No evidence of acute infa rction. There is moderate periventricular and subcortical hypodensity, nonspecific but probably relat ed to small vessel ischemic disease. There is moderate prominence of the sulci and ventricles relat ed to cerebral atrophy. There is intracranial carotid arteriosclerosis. There is no mass effect o r midline shift. There is no obstructive hydrocephalus suspected. There are no extra-axial collectio ns. There are no acute calvarial fractures. The orbits are unremarkable. Soft tissue is unremarkab le. The visualized sinuses and mastoid air cells are well aerated. CERVICAL CT: There is no evidence of acute cervical fracture. The odontoid process is intact. Pre- dens space is normal. Prevertebral soft tissue is normal. There are no soft tissue abnormalities id entified. There is no disc space widening or traumatic vertebral body subluxation suspected. There is advanced lower cervical disc disease, multilevel cervical arthropathy. A detailed level by level evaluation of spondylosis can be added as addendum if requested. IMPRESSION: 1. No acute intracranial findings or cervical fracture. 2. Old basal ganglia lacunar infarctions. 3. Atrophy and microangiopathy. 4. Cervical spondylosis. Reviewed, dictated and finalized at location A. IMPRESSION: 1. No acute intracranial findings or cervical fracture. 2. Old basal ganglia lacunar infarctions. 3. Atrophy and microangiopathy. 4. Cervical spondylosis.
--- NOTE | ~2020-03-17 | XR_ITS ---
EXAMINATION: XR chest 2V EXAM DATE: 03/17/2020 11:01 INDICATION: Weakness, fall. TECHNIQUE: Frontal and lateral projections of the chest obtained and reviewed. Comparison is made to prior examination from 02/08/2020. FINDINGS: The lungs are clear. There are no pleural effusions. The cardiomediastinal silhouette is within normal limits. There is no pneumothorax suspected. There are bony degenerative changes. [place] st implants with capsular calcification, retraction. IMPRESSION: No acute cardiopulmonary findings. Reviewed, dictated and finalized at location A.
--- NOTE | 2020-03-17 10:29 | ED.WEAKNESS ---
HPI - Weakness General Chief complaint: Weakness <Jamila Holguin PA-C - Last Filed: 03/17/20 14:39> Stated complaint: Weakness <GISELA Horowitz Last Filed: 03/17/20 14:39> Time Seen by Provider: 03/17/20 10:14 <GISELA Horowitz Last Filed: 03/17/20 14:39> Source: patient <GISELA Horowitz Last Filed: 03/17/20 14:39> Mode of arrival: ambulatory <GISELA Horowitz Last Filed: 03/17/20 14:39> Limitations: no limitations <GISELA Horowitz Last Filed: 03/17/20 14:39> History of Present Illness HPI Narrative: This is a 79 year old female that presents to the ER for generalized weakness. Reports she laid down on the floor and was not able to get back up last night. Reports she had to call 911 for lift assist this morning. Reports due to declining health she has been trying to get into a rehab facility. Reports neck pain that is chronic for her, but worsened since laying on the floor all night. Otherwise has no focal complaints. Denies fever, cough, chest pain, shortness of breath, abdominal pain, vomiting, or dysuria <Jamila Holguin PA-C - Last Filed: 03/17/20 14:39> Related Data Home medications: Home Medications Medication Instructions Recorded Confirmed venlafaxine [Effexor XR] 150 mg PO DAILY 02/02/20 02/08/20 nitrofurantoin monohyd/m-cryst 03/17/20 omeprazole 03/17/20 triamterene-hydrochlorothiazid tablet 03/17/20 <GISELA Horowitz Last Filed: 03/17/20 14:39> Allergies/Adverse reactions: Allergies Allergy/AdvReac Type Severity Reaction Status Date / Time No Known Allergies Allergy Verified 03/17/20 09:57 <GISELA Horowitz Last Filed: 03/17/20 14:39> Review of Systems Review of Systems: Narrative: CONSTITUTIONAL: Denies fever CARDIOVASCULAR: Denies chest pain RESPIRATORY: Denies cough or dyspnea. GASTROINTESTINAL: Denies abdominal pain, nausea, vomiting GENITOURINARY: Denies dysuria NEUROLOGIC: Reports weakness. <Jamila Holguin PA-C - Last Filed: 03/17/20 14:39> All systems reviewed & are unremarkable except as noted in HPI and below <Jamila Holguin PA-C - Last Filed: 03/17/20 14:39> PMFSH Social History Social History: Social History Social History: The patient lives in her own home in [place], [place]. She has an orange cat named terrence that lives at home with her. Her only child, son Lam, in June 2019. 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 She smoked about a pack of cigarettes per day and quit many years ago. She denies alcohol and illicit substance use. She designates her ex-, Familia Grimm, and a friend named Inocencia as her surrogate decision makers. She wishes to be a full code. Smoking packs per day: 1 Smoking cigarettes per day: 20.0 Years smoked: 40 Smoking pack-years: 40.00 Smoking status: Former smoker Tobacco type: cigarettes Smoking end date: 02/08/20 Alcohol intake: never Substance use: never Gender identity (if verbalized by the patient): Female Spiritual care concerns: No <Jamila Holguin PA-C - Last Filed: 03/17/20 14:39> Exam Narrative: Exam Narrative: GENERAL: Elderly, well-nourished, and in no acute distress. HEAD: Normocephalic, atraumatic. EYES: PERRLA and EOMI. ENT: Nares clear, no rhinorrhea or epistaxis. Mucous membranes moist. Oropharynx without tonsillar hypertrophy exudate or other lesions. NECK: Supple. No adenopathy or masses. CHEST: Clear to auscultation. No respiratory distress. No wheezes rales or rhonchi HEART: Regular rate and rhythm. No murmur heard. Normal peripheral pulses. ABDOMEN: Soft, nontender, nondistended, normal active bowel sounds. EXTREMITIES: Normal range of motion. No edema. SKIN: Warm, dry, no rash. NEURO: No focal deficits. Alert and oriented x2. CN II-XII gr
--- NOTE | 2020-03-17 10:37 | ECG_ITS ---
Measurements Intervals [place] Rate: 72 P: 20 PA: 178 QRS: -24 QRSD: 109 T: 1 QT: 416 QTc: 458 Interpretive Statements SINUS RHYTHM WITH SINUS ARRHYTHMIA BORDERLINE ST-T WAVE ABNORMALITY- INF/LAT LEADS BASELINE ARTIFACT- I, II, III, AVR, AVL, V3-V6 BORDERLINE ECG Electronically Signed On 03-17-2020 11:35:35 CDT by Zan Díaz D.O.
[2020-03-17] MEDS: SODIUM CHLORIDE 0.9% IV 1,000 ML 999 ML IV CONT (11:12)
[2020-03-17 11:25] LABS: Basophils Absolute Auto 0.1 K/mm3 (0.0-0.1); Basophils Percent Auto 0.5 % (0.2-1.2); Eosinophils Percent Auto 0.3 % (0-4.4); Hematocrit 45.3 % (37.0-47.0); Hemoglobin 15.5 g/dL (12.0-15.0); Immature Granulocyte Absolute 0.04 K/mm3 (0.00-0.031); Immature Granulocyte Percent A 0.4 % (0-0.5); Lymphocytes Absolute Auto 1.14 K/mm3 (0.9-3.2); Lymphocytes Percent Auto 11.8 % (18.3-44.2); Mean Corpuscular HGB Conc 34.2 g/dl (32-36); Mean Corpuscular Hemoglobin 28.4 pg (26-34); Monocytes Absolute Auto 0.7 K/mm3 (0.1-0.6); Monocytes Percent Auto 7.6 % (2.6-8.5); Neutrophils Absolute Auto 7.6 K/mm3 (1.3-6.7); Neutrophils Percent Auto 79.4 % (45.5-73.1); Platelet Count Result 263 k/mm3 (150-375); Red Blood Count 5.46 M/mm3 (4.2-5.4); Red Cell Distribution Width 14.4 % (11.5-14.5); White Blood Count 9.6 K/mm3 (4.5-10.0)
[2020-03-17 11:41] LABS: Alanine Aminotransferase 18 U/L (4-35); Albumin Level 4.5 g/dL (3.5-5.1); Alkaline Phosphatase 101 U/L (38-126); Anion Gap 14.2 mmol/L (7-16); Aspartate Amino Transferase 28 U/L (14-36); Bilirubin,Total 0.7 mg/dL (0.2-1.3); Blood Urea Nitrogen 15 mg/dL (7-17); Calcium 10.1 mg/dL (8.4-10.2); Carbon Dioxide 32 mmol/L (22-30); Chloride 93 mmol/L (98-107); Estimated CRCL calculation 42 ml/min; Estimated Glomerular Filt Rate > 60; Glucose 153 mg/dL (65-105); Potassium 3.2 mmol/L (3.4-5.0); Sodium 136 mmol/L (137-145)
[2020-03-17 11:42] LABS: Lactic Acid Reflex 2.6 mmol/L (0.7-2.1)
[2020-03-17 11:51] LABS: Add Urine Microscopic? YES; Appearance Urine Clear (Clear); Bilirubin Urine Negative (Negative); Blood Urine Negative (Negative); Color Urine Yellow (Yellow); Glucose Urine UA Negative (Negative); Ketones Urine Negative (Negative); Leukocyte Esterase Ur Negative LEU/UL (Negative); Mucus Urine Rare /lpf; Nitrate Urine Negative (Negative); Protein Urine 1+ mg/dL (Negative); RBC Urine 0-2 /hpf (0-2); Specific Grav Ur 1.015 (1.001-1.035); Urobilinogen Urine Negative mg/dL (<2.0); WBC Urine 0-3 /hpf
[2020-03-17 11:54] LABS: Creatine Kinase 65 U/L (30-135)
[2020-03-17] MEDS: POTASSIUM CHLORIDE 20 MEQ PACKET (FOR LIQUID) PO (12:26)
[2020-03-17 14:22] LABS: Reflex Lactic Acid Yes or No Add Lactic
[2020-03-17 14:27] LABS: Amphetamine Screen Urine Negative (Negative); Barbiturate Screen Urine Negative (Negative); Benzodiazepines Screen Urine Positive (Negative); Cannabinoid Screen Urine Negative (Negative); Cocaine Screen Urine Negative (Negative); Methadone Screen Urine Negative (Negative); Opiate Screen Urine Negative (Negative); Phencyclidine Screen Urine Negative (Negative)
[2020-03-17 15:34] LABS: Lactic Acid 2.1 mmol/L (0.7-2.1)
--- NOTE | 2020-03-17 16:55 | PC.NURSE ---
This patient, Chayito Grimm, was admitted to [facility] Surg Room 326-01. Patient/family oriented to hospital policies and general routines including ID bracelet, bed and alarms, visiting hours, pain management, procedures, bathroom and other care routines, personal items, smoking policy, room service/diet, and visiting hours. Valuables list has been completed. Information on how to activate the Rapid Response Team has been discussed. Patient/Family are encouraged to report perceived risks to care and to ask questions if they do not understand what they are told or what they should do.
--- NOTE | 2020-03-17 19:30 | PM.IMHP ---
H&P: HPI History of Present Illness Chief complaint: Generalized weakness. Narrative: Chayito Grimm is an 79-year-old female with depression, anxiety, GERD, and obstructive sleep apnea who presented to the emergency department earlier today via EMS from home for evaluation of generalized weakness. She is known to myself and the hospitalist service with a recent admission in January 2020 in which she was admitted for sepsis and pneumonia. She was discharged home within a couple of days and home health and physical therapy have been coming to the house. It sounds as though she has not had easy time returning home, and she has been trying to get into an assisted living facility. Today, she called EMS was called for a lift assist from the floor. She was found lying in the middle of the living room floor with a pillow under her right shoulder. She reports that she got on the floor last evening and slept there overnight because all of the beds were full but it looks like she told looks like she told EMS that she was on the floor because she had been playing board games with her son. When I inquired about the beds being full, she tells me that her son, grandson, and friends were sleeping in all of the beds and that left her to sleep on the floor. Unfortunately, her 1 and only son in June 2019. Again, she adamantly denies falling last night and there was no obvious evidence of injury on exam. She has no complaints at the time my evaluation, specifically denying headache, auditory and visual changes, focal weakness, paresthesias, fever, chills, sweats, cold and flu symptoms, chest pain, cough, shortness of breath, nausea, vomiting, diarrhea, dysuria. Of note, the nurse tells me that there were 3 bottles of venlafaxine found at her home, and it looks like she has not been taking her medications as prescribed. Review of Systems Review of Systems: Narrative: Twelve systems were reviewed with pertinent positives and negatives as per HPI. No focal weakness or paresthesias. She denies headache. No head trauma or loss of consciousness. No history of dementia. She has not had nausea, vomiting, or diarrhea. She denies suicidal and homicidal ideation. Except as documented, all other systems were reviewed and are negative. [facility] Past Medical History Medical History (Updated 03/17/20 @ 23:17 by Gisela Malik PA-C) Cerebrovascular accident 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 Depression with anxiety Essential hypertension Gastroesophageal reflux disease Obstructive sleep apnea She does not use a CPAP. Rheumatic fever In childhood. Surgical History Surgical History History of appendectomy History of tonsillectomy and adenoidectomy Family History Family History Sibling Family history of malignant neoplasm of ovary Sister Acute myocardial infarction Another sister Mother PNA (pneumonia) Father Acute myocardial infarction Social History Social History (Updated 03/17/20 @ 23:04 by Gisela Malik PA-C) Social History: The patient lives in her own home in [place], [place]. Her only child, a son Lam, in June 2019. 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 She smoked about a pack of cigarettes per day and quit many years ago. She denies alcohol and illicit substance use. She designates her ex-, Familia Grimm, and a friend named Inocencia as her surrogate decision makers. She wishes to be a full code. Smoking packs per day: 1 Smoking cigarettes per day: 20.0 Years smoked: 5 Smoking pack-years: 5.00 Smoking status: Former smoker Tobacco type: cigarettes Smoking end date: 02/08/20 Alcohol intake: never Substance use: never Gender identity (if verbalized by the patient): Fe
[2020-03-17 22:37] LABS: SARS-CoV-2 RNA PCR Negative
[2020-03-18] VITALS (8 sets, daily range): BP systolic 112–120; BP diastolic 68–74; PULSE 71–94; RESP 16–18; TEMP 36.4–37.3; O2SAT 94–96
[2020-03-18] MEDS: ALPRAZolam 0.25 MG TABLET PO ×2 (01:23→09:35)
[2020-03-18] MEDS: SODIUM CHLORIDE 0.9% IV 1,000 ML 75 ML IV CONT (01:23)
[2020-03-18 06:38] LABS: Basophils Percent Auto 0.5 % (0.2-1.2); Eosinophils Absolute Auto 0.3 K/mm3 (0-0.3); Eosinophils Percent Auto 3.8 % (0-4.4); Hemoglobin 12.7 g/dL (12.0-15.0); Immature Granulocyte Absolute 0.01 K/mm3 (0.00-0.031); Immature Granulocyte Percent A 0.2 % (0-0.5); Lymphocytes Absolute Auto 1.89 K/mm3 (0.9-3.2); Mean Corpuscular HGB Conc 33.4 g/dl (32-36); Mean Corpuscular Hemoglobin 28.1 pg (26-34); Mean Corpuscular Volume 84.1 fl (80-100); Monocytes Absolute Auto 0.8 K/mm3 (0.1-0.6); Monocytes Percent Auto 12.4 % (2.6-8.5); Neutrophils Absolute Auto 3.5 K/mm3 (1.3-6.7); Neutrophils Percent Auto 54.1 % (45.5-73.1); Platelet Count Result 216 k/mm3 (150-375); Red Blood Count 4.52 M/mm3 (4.2-5.4); Red Cell Distribution Width 14.6 % (11.5-14.5); White Blood Count 6.5 K/mm3 (4.5-10.0)
[2020-03-18 06:50] LABS: Blood Urea Nitrogen 13 mg/dL (7-17); Calcium 8.9 mg/dL (8.4-10.2); Carbon Dioxide 29 mmol/L (22-30); Chloride 100 mmol/L (98-107); Estimated CRCL calculation 46 ml/min; Estimated Glomerular Filt Rate > 60; Glucose 120 mg/dL (65-105); Magnesium 1.6 mg/dL (1.6-2.3); Sodium 134 mmol/L (137-145)
[2020-03-18] MEDS: MAGNESIUM SULF 2 GM/WATER 50ML 2 GM/50 ML BAG IVPB (09:34)
[2020-03-18] MEDS: POTASSIUM CHLORIDE 20 MEQ TABLET 40 MEQ PO (09:35)
[2020-03-18] MEDS: PANTOPRAZOLE 40 MG TABLET PO ×2 (09:37→17:09)
[2020-03-18] MEDS: amLODIPine BESYLATE 5 MG TABLET PO (09:37)
[2020-03-18] MEDS: VENLAFAXINE HCL XR 75 MG CAP.ER.24H 150 MG PO (09:37)
[2020-03-18 10:54] LABS: Hemoglobin A1C 6.2 % (<5.7)
--- NOTE | 2020-03-18 14:03 | PM.IMPN ---
Progress Note: A&P Assessment and Plan (1) Generalized weakness: Code(s): R53.1 - Weakness Status: Acute Assessment and Plan: Secondary to dehydration, electrolyte abnormalities, and likely a component of failure to thrive. She is current with home health and family is working on applying to assisted living. She is walking 120' independently and would not be appropriate for SNF at this time. Planned for discharge home with home health today, issues with getting transportation home today, will plan for dc in AM. (2) Depression with anxiety: Code(s): F41.8 - Other specified anxiety disorders Status: Chronic Assessment and Plan: May not be taking her medications appropriately at home. She has made comments to staff about living with her son (although her son is ). Continue home medications including venlafaxine and PRN xanax. (3) Gastroesophageal reflux disease: Qualifiers: Esophagitis presence: esophagitis presence not specified Qualified Code(s): K21.9 - Gastro-esophageal reflux disease without esophagitis Code(s): K21.9 - Gastro-esophageal reflux disease without esophagitis Status: Chronic Assessment and Plan: No acute issues. Continue PPI. (4) Essential hypertension: Code(s): I10 - Essential (primary) hypertension Status: Acute Assessment and Plan: Stable, last 112/. Diuretic held due to electrolyte abnormalities and mild dehydration. Continue home Norvasc and monitor BP. (5) Electrolyte abnormality: Code(s): E87.8 - Other disorders of electrolyte and fluid balance, not elsewhere classified Status: Acute Assessment and Plan: Including mild hyponatremia, hypokalemia, and hypochloremia. Secondary to dehydration in addition to triamterene/hydrochlorothiazide. Diuretic held. Replace electrolytes as needed and monitor. (6) Dehydration: Code(s): E86.0 - Dehydration Status: Acute Assessment and Plan: Receieved IV fluids overnight. Will monitor. (7) Hyperglycemia: Code(s): R73.9 - Hyperglycemia, unspecified Status: Acute Assessment and Plan: Fasting glucose 120 this AM, A1c 6.2% this morning, at increased risk for type 2 DM. Follow up with PCP. Subjective Date/time seen: 03/18/20 1330 Interval history: Ms. Grimm is an 79yo F admitted for generalized weakness. She reports feeling well today and offers no complaints. Denies chest pain, shortness of breath, or calf tenderness. She is sitting up in bed eating lunch at time of my encounter. No nausea or vomiting. She is able to answer my questions appropriately but is flat and withdrawn. Review of Systems Review of Systems: Narrative: Twelve systems were reviewed with pertinent positives and negatives as per HPI. Exam Narrative: Exam Narrative: General: Female resting sitting up in bed in no acute distress. HEENT: Normocephalic, EOMI, oral mucosa moist. Cardiovascular: Rate and rhythm are regular. Respiratory: Lungs clear to auscultation all orr. Non-labored breathing. Abdomen: Soft, non-tender, non-distended, bowel sounds present. Extremities: Peripheral pulses intact. No edema. Neuro: No focal neurological deficits. Speech is clear. She answers my questions appropriately but has made comments to other staff that have not made sense. Follows simple commands. Objective Data Vital Signs Vital Signs: Last Vital Signs Temp 98.4 F 03/18/20 14:00 Pulse 88 03/18/20 16:00 Resp 18 03/18/20 14:00 BP 112/68 03/18/20 14:00 Pulse Ox 96 03/18/20 14:00 Intake/Output Intake/Output: Intake & Output 03/15/20 03/16/20 03/17/20 03/18/20 23:59 23:59 23:59 23:59 Intake Total 1360 40
--- NOTE | 2020-03-18 17:44 | PCCCNOTE ---
Juliette, the person who was going to and is now unable to turkey picker the patient at discharge yashira, expressed concern that, due to the steepness of and uneven terrain of the patient's home sidewalk, the patient would be a fall hazard to arrive home by cab without standby assist to help her into her home even if she had a walker. The patient does not know any of her neighbor's names, does not have any nearby relatives and [facility] the patient and a lengthy attempt to find someone to meet her at her home, the patient's other contact (her ex- Familia) agreed to come tomorrow morning between 0900 and 0930 to take the patient home. Nursing updated with this information.
[2020-03-19 06:00] VITALS: BP 153/69; PULSE 71; RESP 16; TEMP 36.6; O2SAT 93
[2020-03-19 09:26] LABS: Anion Gap 8.2 mmol/L (7-16); Blood Urea Nitrogen 11 mg/dL (7-17); Calcium 8.8 mg/dL (8.4-10.2); Carbon Dioxide 28 mmol/L (22-30); Chloride 102 mmol/L (98-107); Estimated CRCL calculation 46 ml/min; Estimated Glomerular Filt Rate > 60; Glucose 125 mg/dL (65-105); Magnesium 1.6 mg/dL (1.6-2.3); Potassium 3.2 mmol/L (3.4-5.0); Sodium 135 mmol/L (137-145)
--- NOTE | 2020-03-19 17:33 | PM.DS ---
DS: Admitting Diagnosis Admitting Diagnosis Admitting Diagnosis: Weakness DS: Discharge Diagnosis Discharge Diagnosis (1) Generalized weakness: Code(s): R53.1 - Weakness Status: Acute Assessment and Plan: Secondary to dehydration, electrolyte abnormalities, and likely a component of failure to thrive. She is current with home health and family is working on applying to assisted living. She is walking 120' independently and would not be appropriate for SNF at this time. Planned for discharge home with home health today, issues with getting transportation home today, will plan for dc in AM. (2) Depression with anxiety: Code(s): F41.8 - Other specified anxiety disorders Status: Chronic Assessment and Plan: May not be taking her medications appropriately at home. She has made comments to staff about living with her son (although her son is ). Continue home medications including venlafaxine and PRN xanax. (3) Gastroesophageal reflux disease: Qualifiers: Esophagitis presence: esophagitis presence not specified Qualified Code(s): K21.9 - Gastro-esophageal reflux disease without esophagitis Code(s): K21.9 - Gastro-esophageal reflux disease without esophagitis Status: Chronic Assessment and Plan: No acute issues. Continue PPI. (4) Essential hypertension: Code(s): I10 - Essential (primary) hypertension Status: Acute Assessment and Plan: Stable. (5) Electrolyte abnormality: Code(s): E87.8 - Other disorders of electrolyte and fluid balance, not elsewhere classified Status: Acute Assessment and Plan: Including mild hyponatremia, hypokalemia, and hypochloremia. Secondary to dehydration in addition to triamterene/hydrochlorothiazide. Diuretic held at discharge. (6) Dehydration: Code(s): E86.0 - Dehydration Status: Acute Assessment and Plan: Receieved IV fluids overnight. Hold diuretic at discharge until follow up with PCP. (7) Hyperglycemia: Code(s): R73.9 - Hyperglycemia, unspecified Status: Acute Assessment and Plan: Fasting glucose 120 this AM, A1c 6.2% this morning, at increased risk for type 2 DM. Follow up with PCP. DS: Summary Hospital Course Hospital Course: Date of Service 03/19/20 Ms. Grimm is an 79yo F with history of anxiety and depression who presented to the ED for evaluation of weakness. She called EMS for lift assist because she could not get off the floor since the evening before. She was found lying on the ground at home. She reported she was sleeping on the floor because all of the beds were taken , noting her son was sleeping in her bed , but her son is . 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 Family has been working on applications to assisted living. EMS found 3 full bottles of venlafaxine at her home, suggesting she may not be taking her medications properly. She was recently admitted 02/01-02/04 for treatment of pneumonia and again 02/07-02/09 for treatment of diarrhea. She worked with PT/OT and walked 120' independently, thus did not require SNF placement at this time. She will benefit from follow up with PCP and psych, help from family or other caregivers to ensure taking medications properly until she can get into assisted living. She was hemodynamically stable for discharge 03/19/20 and is current with [facility]. Time Spent with Patient Time attestation: Total time spent providing and/or coordinating discharge services: 35 minutes Exam Narrative: Exam Narrative: General: Female r
== END 2020-03-19 09:30 | disposition home health service (06) ==
LOC: ANHED 13:39 → ANH3MEDSUR 16:05
PROVIDERS: Physician Assistant; Admitting Provider Internal Medicine; Emergency Provider Emergency Medicine; PCP Emergency Medicine; Visit Provider Family Medicine
DX: E86.0 Dehydration (principal); E87.8 Other disorders of electrolyte and fluid balance, not elsewhere classified; E87.1 Hypo-osmolality and hyponatremia; E87.6 Hypokalemia; R53.1 Weakness; Z11.59 Encounter for screening for other viral diseases; F41.8 Other specified anxiety disorders; K21.9 Gastro-esophageal reflux disease without esophagitis; I10 Essential (primary) hypertension; R73.9 Hyperglycemia, unspecified; R40.0 Somnolence; R62.7 Adult failure to thrive; Z68.23 Body mass index [BMI] 23.0-23.9, adult; E87.2 Acidosis; G47.33 Obstructive sleep apnea (adult) (pediatric); Z86.73 Personal history of transient ischemic attack (TIA), and cerebral infarction without residual deficits; Z87.891 Personal history of nicotine dependence; Z79.899 Other long term (current) drug therapy
CPT/HCPCS: 36415; 51701; 70450; 71046; 72125; 73521; 80048; 80053; 80307; 81001; 82550; 83036; 83605; 83735; 84443; 85025; 87635; 93005; 96361; 96365; 97161; 99285; A9270; C9803; G0378; J3475; J7030; U0003

== ENCOUNTER 2020-04-09 16:08 | Emergency (ER) | payer OTHER, SELFPAY ==
[2020-04-09 15:58] VITALS: PULSE 74; RESP 18; TEMP 36.8; O2SAT 96
[2020-04-09 16:16] VITALS: PULSE 75
[2020-04-09 16:36] LABS: Add Urine Microscopic? YES; Appearance Urine Cloudy (Clear); Bilirubin Urine Negative (Negative); Blood Urine 1+ (Negative); Color Urine Yellow (Yellow); Glucose Urine UA Negative (Negative); Ketones Urine Negative (Negative); Leukocyte Esterase Ur 3+ LEU/UL (Negative); Nitrate Urine Positive (Negative); Protein Urine 1+ mg/dL (Negative); Specific Grav Ur 1.015 (1.001-1.035); Urobilinogen Urine Negative mg/dL (<2.0)
--- NOTE | 2020-04-09 17:39 | ED.AMS ---
HPI - Altered Mental Status General Chief Complaint: Unspecified Stated Complaint: FAILURE TO THRIVE Time Seen by Provider: 04/09/20 17:31 History of Present Illness HPI narrative: Brought in from home for altered mental status. A wellness check was called to her house due to confusion. She reports that she does not believe that she is confused. She lives at home alone. She does report frequent urination. No dysuria, hematuria, nausea, vomiting. Related Data Home Medications Medication Instructions Recorded Confirmed venlafaxine [Effexor XR] 150 mg PO DAILY 02/02/20 03/17/20 alprazolam [Xanax] 0.25 mg PO TID 03/17/20 03/17/20 triamterene-hydrochlorothiazid 1 tablet PO DAILY 03/17/20 03/17/20 Allergies Allergy/AdvReac Type Severity Reaction Status Date / Time No Known Allergies Allergy Verified 04/09/20 16:15 Review of Systems Review of Systems: All systems reviewed & are unremarkable except as noted in HPI and below Constitutional: Constitutional: Denies chills, Denies fatigue, Denies fever(s) and Denies weakness Eyes: Eyes: Denies change in vision Cardiovascular: Cardiovascular: Denies chest pain Respiratory: Respiratory: Denies dyspnea Gastrointestinal: Gastrointestinal: Denies abdominal pain, Denies constipation, Denies diarrhea, Denies nausea and Denies vomiting Genitourinary: Genitourinary: Denies hematuria, Reports nocturia, Denies dysuria and Denies flank pain Neurologic: Denies dizziness, Denies headache(s), Denies numbness and Denies weakness [facility] Past Medical History Medical History Cerebrovascular accident 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 Depression with anxiety Essential hypertension Gastroesophageal reflux disease Obstructive sleep apnea She does not use a CPAP. Rheumatic fever In childhood. Surgical History Surgical History History of appendectomy History of tonsillectomy and adenoidectomy Family History Family History Sibling Family history of malignant neoplasm of ovary Sister Acute myocardial infarction Another sister Mother PNA (pneumonia) Father Acute myocardial infarction Social History Social History Social History: The patient lives in her own home in [place], [place]. Her only child, a son Lam, in June 2019. 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 She smoked about a pack of cigarettes per day and quit many years ago. She denies alcohol and illicit substance use. She designates her ex-, Familia Grimm, and a friend named Inocencia as her surrogate decision makers. She wishes to be a full code. Smoking packs per day: 1 Smoking cigarettes per day: 20.0 Years smoked: 5 Smoking pack-years: 5.00 Smoking status: Former smoker Tobacco type: cigarettes Smoking end date: 02/08/20 Alcohol intake: never Substance use: never Gender identity (if verbalized by the patient): Female Sexual Orientation (if Verbalized by the Patient): Straight or Heterosexual Spiritual care concerns: No Exam Const: General: no acute distress and alert Orientation/consciousness: patient oriented x3 HENMT: Head: no contusions and no hematomas Ears: external ears normal Mouth: Yes moist mucous membranes Eyes: Pupils: Equal, round and reactive pupils present EOM: EOMs intact bilaterally Resp: Effort & Inspection: normal respiratory effort Auscultation: clear to auscultation bilaterally Cardio: Rate: regular rate Rhythm: regular rhythm GI: GI Palp: Yes Soft to palpation and No Tenderness to palpation present (GI) Skin: General skin exam: normal color Neuro: General: patient oriented x3, moves all extremities, no focal m
[2020-04-09 17:41] VITALS: BP 127/75; PULSE 74; RESP 13; O2SAT 95
[2020-04-09 18:37] VITALS: BP 134/68; PULSE 77; RESP 20; O2SAT 94
== END 2020-04-09 18:38 | disposition home or self-care (01) ==
PROVIDERS: Emergency Provider Emergency Medicine; PCP Emergency Medicine
DX: N30.00 Acute cystitis without hematuria (principal); Z86.73 Personal history of transient ischemic attack (TIA), and cerebral infarction without residual deficits; I10 Essential (primary) hypertension; K21.9 Gastro-esophageal reflux disease without esophagitis; G47.33 Obstructive sleep apnea (adult) (pediatric); F41.8 Other specified anxiety disorders; Z87.891 Personal history of nicotine dependence
CPT/HCPCS: 51701; 81001; 96374; 99284; J0696

== ENCOUNTER 2020-06-10 04:42 | Observation (INO) | payer OTHER, SELFPAY ==
[2020-06-10] VITALS (22 sets, daily range): BP systolic 162–211; BP diastolic 81–108; PULSE 66–86; RESP 15–76; TEMP 36.5–36.9; O2SAT 92–97; BMI 22.9
--- NOTE | ~2020-06-10 | CT_ITS ---
EXAMINATION: CT brain wo con DATE: 06/10/2020 05:06 INDICATION: Altered mental status TECHNIQUE: Computed tomography (CT) of the head was performed without intravenous contrast. Sagittal and coronal reconstructions were performed. The mA was adjusted according to patient size. Iterative reconstruction technique was employed. The dose-length product was 605.33 mGy-cm. COMPARISON: head CT dated 03/17/2020 FINDINGS: No interval change in small infarcts in the right frontoparietal white matter and at the bilateral ba jonathan ganglia. No acute intracranial hemorrhage, acute infarction or abnormal extra axial fluid collect ion. There is moderate scattered white matter hypoattenuation consistent with chronic small vessel is chemic disease. Symmetric prominence of the sulci and ventricles consistent with moderate age-appropr iate diffuse cerebral volume loss. No mass/mass effect. Intracranial calcified cerebral atheroscleros is is noted. The orbits, paranasal sinuses and mastoid air cells are normal. IMPRESSION: 1. No acute intracranial process. 2. Old infarcts in the bilateral basal ganglia and right frontoparietal white matter. 3. Age-related changes including moderate diffuse volume loss and moderate scattered white matter hyp oattenuation consistent with chronic small vessel ischemic disease. Reviewed, dictated and finalized at location A. IMPRESSION: 1. No acute intracranial process. 2. Old infarcts in the bilateral basal ganglia and right frontoparietal white m atter. 3. Age-related changes including moderate diffuse volume loss and moderate scat tered white matter hypoattenuation consistent with chronic small vessel ischemi c disease.
--- NOTE | 2020-06-10 04:46 | ECG_ITS ---
Measurements Intervals [place] Rate: 83 P: 27 NM: 163 QRS: -12 QRSD: 100 T: 14 QT: 364 QTc: 429 Interpretive Statements SINUS RHYTHM BORDERLINE T WAVE ABNORMALITY- INFERIOR LEADS BASELINE ARTIFACT- I, II, III, AVR, AVL, AVF BORDERLINE ECG Electronically Signed On 06-10-2020 9:47:40 CDT by Zan Díaz D.O.
--- NOTE | 2020-06-10 04:56 | ED.AMS ---
HPI - Altered Mental Status General Chief Complaint: Altered Mental Status Stated Complaint: confusion Time Seen by Provider: 06/10/20 04:49 Source: patient and EMS Mode of arrival: EMS Limitations: no limitations History of Present Illness HPI narrative: Patient is an 79-year-old female brought in by EMS due to confusion which is described as patient claiming to have someone broke into her house twice tonight and that her grandson was sneaking inside a secret passageway through her house. Patient now states that she could have been possibly for dreaming about these and now she is alert awake and oriented x4. Patient currently denies any complaints. Related Data Home Medications Medication Instructions Recorded Confirmed alprazolam [Xanax] 0.25 mg PO TID 03/17/20 03/17/20 triamterene-hydrochlorothiazid 1 tablet PO DAILY 03/17/20 03/17/20 Allergies Allergy/AdvReac Type Severity Reaction Status Date / Time No Known Allergies Allergy Verified 06/10/20 05:03 Review of Systems Review of Systems: All systems reviewed & are unremarkable except as noted in HPI and below Constitutional: Constitutional: Denies body ache(s), Denies chills, Denies excessive sweating, Denies fatigue, Denies fever(s), Denies headache(s), Denies lethargy, Denies malaise, Denies weakness and Denies weight loss Eyes: Eyes: Denies blurry vision, Denies change in vision and Denies loss of vision ENT: Denies dizziness, Denies ear discharge, Denies headache(s), Denies lip swelling, Denies epistaxis, Denies nasal congestion, Denies neck pain, Denies throat swelling and Denies tongue swelling Cardiovascular: Cardiovascular: Denies chest pain, Denies chest pain at rest, Denies chest pain with activity, Denies diaphoresis, Denies rapid heart rate, Denies edema, Denies irregular heart rhythm, Denies lightheadedness, Denies palpitations, Denies dyspnea and Denies dyspnea on exertion Respiratory: Respiratory: Denies chest congestion, Denies cough, Denies hemoptysis, Denies dyspnea and Denies dyspnea on exertion Gastrointestinal: Gastrointestinal: Denies abdominal pain, Denies melena, Denies hematochezia, Denies diarrhea, Denies nausea, Denies vomiting and Denies hematemesis Musculoskeletal: Musculoskeletal: Denies abnormal gait, Denies deformity, Denies joint swelling, Denies limited range of motion, Denies neck pain and Denies numbness Neurologic: Denies Abnormal speech present, Denies abnormal gait, Denies dizziness, Denies headache(s), Denies focal weakness, Denies loss of vision, Denies numbness, Denies Other visual disturbances, Denies Sensory deficit (Neuro) and Denies weakness Psychiatric: Psychiatric: Denies depression, Denies auditory hallucinations, Denies homicidal ideation and Denies suicidal ideation Endocrine: Endocrine: Denies cold intolerance, Denies excessive sweating, Denies fatigue, Denies heat intolerance and Denies palpitations Hematologic/Lymphatic: Hematologic/Lymphatic: Denies easy bleeding and Denies easy bruising Allergic/Immunologic: Allergic/Immunologic: Denies lip swelling, Denies throat swelling and Denies tongue swelling [facility] Past Medical History Medical History (Updated 06/10/20 @ 06:15 by Jersey Hutchinson MD) Cerebrovascular accident 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 Depression with anxiety Essential hypertension Gastroesophageal reflux disease Obstructive sleep apnea She does not use a CPAP. Rheumatic fever In childhood. Surgical History Surgical History History of appendectomy History of tonsillectomy and adenoidectomy Family History Family History Sibling Family history of malignant neoplasm of ovary Sister Acute myocardial infarction Another sister Mother PNA (pneumonia) Father Acute myocardial infarction Social History Social History (Reviewed 04/09/20 @ 17:4
[2020-06-10 05:06] LABS: Basophils Percent Auto 0.5 % (0.2-1.2); Eosinophils Absolute Auto 0.3 K/mm3 (0-0.3); Eosinophils Percent Auto 4.4 % (0-4.4); Hematocrit 41.8 % (37.0-47.0); Hemoglobin 13.8 g/dL (12.0-15.0); Immature Granulocyte Absolute 0.02 K/mm3 (0.00-0.031); Immature Granulocyte Percent A 0.3 % (0-0.5); Lymphocytes Percent Auto 37.7 % (18.3-44.2); Mean Corpuscular Hemoglobin 27.9 pg (26-34); Mean Corpuscular Volume 84.4 fl (80-100); Mean Platelet Volume 9.1 fl (7.4-10.4); Monocytes Absolute Auto 1.2 K/mm3 (0.1-0.6); Monocytes Percent Auto 14.9 % (2.6-8.5); Neutrophils Absolute Auto 3.3 K/mm3 (1.3-6.7); Neutrophils Percent Auto 42.2 % (45.5-73.1); Platelet Count Result 193 k/mm3 (150-375); Red Blood Count 4.95 M/mm3 (4.2-5.4); Red Cell Distribution Width 13.6 % (11.5-14.5); White Blood Count 7.7 K/mm3 (4.5-10.0)
[2020-06-10 05:20] LABS: Alanine Aminotransferase 12 U/L (4-35); Alkaline Phosphatase 76 U/L (38-126); Anion Gap 6 mmol/L (8-16); Aspartate Amino Transferase 24 U/L (14-36); Bilirubin,Total 0.3 mg/dL (0.2-1.3); Blood Urea Nitrogen 22 mg/dL (7-17); Calcium 9.4 mg/dL (8.4-10.2); Carbon Dioxide 31 mmol/L (22-30); Chloride 101 mmol/L (98-107); Estimated Glomerular Filt Rate > 60; Glucose 121 mg/dL (65-105); Potassium 4.1 mmol/L (3.4-5.0); Sodium 138 mmol/L (137-145)
[2020-06-10 05:41] LABS: Add Urine Microscopic? YES; Appearance Urine Cloudy (Clear); Bacteria Urine Trace /hpf; Bilirubin Urine Negative (Negative); Blood Urine 1+ (Negative); Color Urine Yellow (Yellow); Glucose Urine UA Negative (Negative); Ketones Urine Negative (Negative); Leukocyte Esterase Ur 3+ LEU/UL (Negative); Nitrate Urine Negative (Negative); Protein Urine 1+ mg/dL (Negative); Specific Grav Ur 1.015 (1.001-1.035); Squamous Epithelial Cell Urine Few /hpf (Few); Urobilinogen Urine Negative mg/dL (<2.0); WBC Urine >75 /hpf
[2020-06-10] MEDS: LABETALOL HCL INJ 100 MG/20 ML VIAL 20 MG IV PUSH (05:44)
--- NOTE | 2020-06-10 07:15 | PC.NURSE ---
Pt report taken from ROGELIO Marie. Pt resting on stretcher with call light in reach.
--- NOTE | 2020-06-10 07:27 | PC.NURSE ---
Report given to ROGELIO Avalos
--- NOTE | 2020-06-10 07:49 | ADMGEN ---
This patient, Chayito Grimm, was admitted to 3 [facility] Room 323-01. Patient/family oriented to hospital policies and general routines including ID bracelet, bed and alarms, visiting hours, pain management, procedures, bathroom and other care routines, personal items, smoking policy, room service/diet, and visiting hours. Information on how to activate the Rapid Response Team has been discussed. Patient/Family are encouraged to report perceived risks to care and to ask questions if they do not understand what they are told or what they should do.
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
[2020-06-10] MEDS: ALPRAZolam (*CRX) 0.25 MG TABLET PO (17:24)
[2020-06-10] MEDS: hydrALAZINE HCL 20 MG/ML VIAL 10 MG IV PUSH (22:11)
[2020-06-10] MEDS: LABETALOL HCL INJ 100 MG/20 ML VIAL IV PUSH (23:44)
[2020-06-11] VITALS (11 sets, daily range): BP systolic 97–201; BP diastolic 60–96; PULSE 68–83; RESP 16–20; TEMP 36.4–37.2; O2SAT 92–95
[2020-06-11] MEDS: LABETALOL HCL INJ 100 MG/20 ML VIAL 20 MG IV PUSH (00:59)
[2020-06-11] MEDS: ACETAMINOPHEN 325 MG TABLET 650 MG PO (06:27)
[2020-06-11] MEDS: hydrALAZINE HCL 20 MG/ML VIAL 10 MG IV PUSH (06:38)
[2020-06-11] MEDS: TRIAMTERENE 37.5 MG/HCTZ 25 MG (MAXZIDE) TABLET 2 TAB PO (08:20)
[2020-06-11] MEDS: ALPRAZolam (*CRX) 0.25 MG TABLET PO ×2 (08:20→17:11)
[2020-06-11] MEDS: amLODIPine BESYLATE 5 MG TABLET PO (08:20)
[2020-06-11] MEDS: PANTOPRAZOLE 40 MG TABLET PO (08:21)
--- NOTE | 2020-06-11 10:51 | PCOTNOTE ---
On 06/11/20, the student, Jamila Gray, provided care and [facility]. I have reviewed the student's documentation and agree with the findings.
[2020-06-11] MEDS: ONDANSETRON INJ 4 MG/2 ML VIAL IV PUSH (10:55)
--- NOTE | 2020-06-11 11:06 | PCPTNOTE ---
Attempted PT eval. Pt refused therapy, states she's too nauseated to do anything. Will try again later today.
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
--- NOTE | 2020-06-11 13:31 | PCPTNOTE ---
Attempted PT eval. Lo MERCADO stated to hold therapy due to change in medical status. Will try again tomorrow.
[2020-06-12] MEDS: hydrALAZINE HCL 20 MG/ML VIAL 10 MG IV PUSH (05:55)
[2020-06-12 06:00] VITALS: BP 161/96; PULSE 91; RESP 16; TEMP 36.8; O2SAT 91
[2020-06-12 08:00] VITALS: PULSE 91; RESP 16; O2SAT 91
--- NOTE | 2020-06-12 08:48 | PCPTNOTE ---
Attempted PT eval this a.m. - pt refused to get out of bed. Will try to complete eval later today.
[2020-06-12] MEDS: VENLAFAXINE HCL XR 75 MG CAP.ER.24H 150 MG PO (09:51)
[2020-06-12] MEDS: PANTOPRAZOLE 40 MG TABLET PO (09:51)
[2020-06-12] MEDS: TRIAMTERENE 37.5 MG/HCTZ 25 MG (MAXZIDE) TABLET 2 TAB PO (09:51)
[2020-06-12] MEDS: amLODIPine BESYLATE 5 MG TABLET PO (09:52)
[2020-06-12] MEDS: ALPRAZolam (*CRX) 0.25 MG TABLET PO ×3 (09:53→18:03)
--- NOTE | 2020-06-12 11:46 | PCPTNOTE ---
Attempted to complete PT eval later this morning. She refused to get out of bed again. Will try again this afternoon.
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
[2020-06-12 14:00] VITALS: BP 115/78; PULSE 98; RESP 18; TEMP 37.1; O2SAT 95
[2020-06-12 22:00] VITALS: BP 119/67; PULSE 87; RESP 16; TEMP 36.8; O2SAT 92
[2020-06-13] MEDS: ACETAMINOPHEN 325 MG TABLET 650 MG PO (01:41)
[2020-06-13 06:00] VITALS: BP 127/81; PULSE 66; RESP 18; TEMP 36.3; O2SAT 93
[2020-06-13 08:00] VITALS: PULSE 66; RESP 18; O2SAT 93
[2020-06-13] MEDS: ALPRAZolam (*CRX) 0.25 MG TABLET PO ×3 (09:05→17:34)
[2020-06-13] MEDS: TRIAMTERENE 37.5 MG/HCTZ 25 MG (MAXZIDE) TABLET 2 TAB PO (10:55)
[2020-06-13] MEDS: VENLAFAXINE HCL XR 75 MG CAP.ER.24H 150 MG PO (10:56)
[2020-06-13] MEDS: PANTOPRAZOLE 40 MG TABLET PO (10:56)
[2020-06-13] MEDS: amLODIPine BESYLATE 5 MG TABLET 10 MG PO (10:57)
[2020-06-13 14:00] VITALS: BP 124/77; PULSE 89; RESP 16; TEMP 36.4; O2SAT 96
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
[2020-06-13 22:00] VITALS: BP 130/88; PULSE 86; RESP 18; TEMP 36.4; O2SAT 92
[2020-06-14 06:00] VITALS: BP 135/87; PULSE 70; RESP 18; TEMP 36.5; O2SAT 94
[2020-06-14 08:00] VITALS: PULSE 70; RESP 18; O2SAT 94
[2020-06-14] MEDS: ALPRAZolam (*CRX) 0.25 MG TABLET PO (10:00)
[2020-06-14] MEDS: TRIAMTERENE 37.5 MG/HCTZ 25 MG (MAXZIDE) TABLET 2 TAB PO (10:01)
[2020-06-14] MEDS: VENLAFAXINE HCL XR 75 MG CAP.ER.24H 150 MG PO (10:01)
[2020-06-14] MEDS: amLODIPine BESYLATE 5 MG TABLET 10 MG PO (10:01)
[2020-06-14] MEDS: PANTOPRAZOLE 40 MG TABLET PO (10:01)
--- NOTE | 2020-06-14 11:54 | PCOTNOTE ---
Attempted to see patient for skilled OT, however, upon therapist's arrival patient was sleeping and declined at this time so that she could nap. Will attempt to see patient later if time permits.
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
--- NOTE | 2020-06-14 14:15 | PC.NURSE ---
Home medications from safe returned to pt.
--- NOTE | 2020-06-14 14:50 | PC.NURSE ---
Patient refused flu shot at discharge. Said she wanted to wait till she went for follow up doctor visit next Sunday.
== END 2020-06-14 14:17 | disposition home health service (06) ==
LOC: ANHED 05:24 → ANH3MEDSUR 07:36
PROVIDERS: Admitting Provider Student in an Organized Health Care Education/Training Program; Emergency Provider Emergency Medicine; PCP Emergency Medicine; Visit Provider Family Medicine
DX: I16.0 Hypertensive urgency (principal); N30.01 Acute cystitis with hematuria; F41.8 Other specified anxiety disorders; G47.33 Obstructive sleep apnea (adult) (pediatric); I10 Essential (primary) hypertension; K21.9 Gastro-esophageal reflux disease without esophagitis; Z86.73 Personal history of transient ischemic attack (TIA), and cerebral infarction without residual deficits; Z87.891 Personal history of nicotine dependence
CPT/HCPCS: 36415; 51701; 70450; 80053; 81001; 85025; 87077; 87086; 87088; 87186; 93005; 96365; 96366; 96375; 96376; 97110; 97116; 97161; 97165; 97535; 99285; A9270; G0378; J0360; J0696; J2405

== ENCOUNTER 2020-10-26 14:07 | Inpatient (IN) | payer OTHER, SELFPAY ==
--- NOTE | ~2020-10-26 | CT_ITS ---
EXAMINATION: CT brain wo con DATE: 10/26/2020 21:11 INDICATION: Altered mental status TECHNIQUE: Computed tomography (CT) of the head was performed without intravenous contrast. The dose- length product was 605.33 mGy-cm. The mA was adjusted according to patient size. Iterative reconstruc tion technique was employed. COMPARISON: CT dated 06/10/2020 FINDINGS: Generalized atrophy. There are scattered moderate periventricular and subcortical white mat ter changes, most likely related to small vessel ischemic disease (microangiopathy). There are chroni c bilateral lacunar infarctions. There is intracranial atherosclerosis. No ventriculomegaly or midlin e shift. Paranasal sinuses and mastoids are pneumatized. No depressed skull fractures. No acute intra cranial hemorrhage, infarction or mass. IMPRESSION: 1. No acute intracranial abnormality. 2: Chronic bilateral lacunar infarctions. 3: Chronic age-related findings. Reviewed, dictated and finalized at location [facility]
--- NOTE | ~2020-10-26 | XR_ITS ---
XR chest 1V portable 10/26/2020 19:52 Indication: Weakness. Chest pain. Hypertension. Procedure: AP portable chest Comparison: Comparison to multiple prior studies sequentially, with oldest reviewed study dated 07/20. Findings: There are bilateral perihilar interstitial infiltrates. There are calcified bilateral breas t implants. No significant pleural effusion or pneumothorax. Heart size normal. There is atherosclero sis. No acute osseous abnormality. Impression: 1: Bilateral perihilar interstitial infiltrates which may represent interstitial edema or atypical pn eumonia. Reviewed, dictated and finalized at location A. [facility] Impression: 1: Bilateral perihilar interstitial infiltrates which may represent interstitia l edema or atypical pneumonia.
[2020-10-26 14:10] VITALS: BP 150/84; PULSE 100; RESP 18; TEMP 36.7; O2SAT 98
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
[2020-10-26 14:28] LABS: Basophils Percent Auto 0.5 % (0.2-1.2); Eosinophils Absolute Auto 0.1 K/mm3 (0-0.3); Eosinophils Percent Auto 1.8 % (0-4.4); Hematocrit 40.7 % (37.0-47.0); Hemoglobin 13.8 g/dL (12.0-15.0); Immature Granulocyte Absolute 0.02 K/mm3 (0.00-0.031); Immature Granulocyte Percent A 0.3 % (0-0.5); Lymphocytes Absolute Auto 1.21 K/mm3 (0.9-3.2); Lymphocytes Percent Auto 19.6 % (18.3-44.2); Mean Corpuscular HGB Conc 33.9 g/dl (32-36); Mean Corpuscular Hemoglobin 28.9 pg (26-34); Mean Corpuscular Volume 85.1 fl (80-100); Mean Platelet Volume 8.7 fl (7.4-10.4); Monocytes Absolute Auto 0.7 K/mm3 (0.1-0.6); Monocytes Percent Auto 11.8 % (2.6-8.5); Neutrophils Absolute Auto 4.1 K/mm3 (1.3-6.7); Platelet Count Result 184 k/mm3 (150-375); Red Blood Count 4.78 M/mm3 (4.2-5.4); Red Cell Distribution Width 13.8 % (11.5-14.5); White Blood Count 6.2 K/mm3 (4.5-10.0)
[2020-10-26 14:37] LABS: Anion Gap 8 mmol/L (8-16); Blood Urea Nitrogen 10 mg/dL (7-17); Carbon Dioxide 29 mmol/L (22-30); Chloride 104 mmol/L (98-107); Estimated CRCL calculation 38 ml/min; Estimated Glomerular Filt Rate 53; Glucose 135 mg/dL (65-105); Sodium 141 mmol/L (137-145)
[2020-10-26 17:16] VITALS: BP 148/80; PULSE 86; RESP 20; TEMP 36.8; O2SAT 100
[2020-10-26 18:23] LABS: Amorphous Sediment Urine Few; Bacteria Urine Trace /hpf; Mucus Urine Few /lpf; Squamous Epithelial Cell Urine Many /hpf (Few); WBC Urine 31-50 /hpf
[2020-10-26 18:51] LABS: Bilirubin Urine Negative (Negative); Blood Urine Negative (Negative); Color Urine Yellow (Yellow); Glucose Urine UA Negative (Negative); Ketones Urine Trace mg/dL (Negative); Leukocyte Esterase Ur 2+ LEU/UL (Negative); Nitrate Urine Negative (Negative); Protein Urine Trace mg/dL (Negative); Specific Grav Ur 1.025 (1.001-1.035); Urobilinogen Urine 0.2 mg/dL (<2.0)
[2020-10-26 18:53] LABS: Add Urine Microscopic? YES; Appearance Urine Sl Cloudy (Clear)
[2020-10-26 19:11] VITALS: BP 148/92; PULSE 84; RESP 20; O2SAT 97
--- NOTE | 2020-10-26 19:32 | ECG_ITS ---
Measurements Intervals [place] Rate: 79 P: 7 IN: 166 QRS: -10 QRSD: 102 T: -20 QT: 392 QTc: 452 Interpretive Statements SINUS RHYTHM NONSPECIFIC ST & T-WAVE ABNORMALITY- DIFFUSE LEADS BORDERLINE ECG Electronically Signed On 10-27-2020 6:59:43 OFFICE HELPER by Zan Díaz D.O.
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
[2020-10-26 20:38] LABS: Troponin I < 0.012 ng/mL (0.000-0.034)
[2020-10-26 22:55] VITALS: BP 185/90; PULSE 84; RESP 18; TEMP 36.3; O2SAT 98; BMI 22.9
--- NOTE | 2020-10-26 22:55 | ADMGEN ---
This patient, Chayito Grimm, was admitted to [facility] Room 331-01. Patient/family oriented to hospital policies and general routines including ID bracelet, bed and alarms, visiting hours, pain management, procedures, bathroom and other care routines, personal items, smoking policy, room service/diet, and visiting hours. Information on how to activate the Rapid Response Team has been discussed. Patient/Family are encouraged to report perceived risks to care and to ask questions if they do not understand what they are told or what they should do.
[2020-10-26 23:57] VITALS: BP 162/90
[2020-10-27] VITALS (7 sets, daily range): BP systolic 156–187; BP diastolic 76–86; PULSE 63–93; RESP 16–20; TEMP 36.4–36.9; O2SAT 94–98
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
[2020-10-27] MEDS: POTASSIUM CHLORIDE 20 MEQ PACKET (FOR LIQUID) 40 MEQ PO (09:17)
[2020-10-27] MEDS: ALPRAZolam (*CRX) 0.25 MG TABLET PO ×3 (09:17→16:09)
[2020-10-27] MEDS: ENOXAPARIN 30 MG/0.3 ML SYRINGE SUB-Q (09:18)
[2020-10-27] MEDS: PANTOPRAZOLE 40 MG TABLET PO ×2 (09:18→16:10)
[2020-10-27] MEDS: TRIAMTERENE 37.5 MG/HCTZ 25 MG (MAXZIDE) TABLET 2 TAB PO (09:18)
[2020-10-27] MEDS: VENLAFAXINE HCL XR 75 MG CAP.ER.24H PO (09:18)
[2020-10-27 09:56] LABS: Magnesium 1.4 mg/dL (1.6-2.3)
[2020-10-27 17:20] LABS: SARS-CoV-2 RNA PCR Negative
[2020-10-28 05:41] VITALS: BP 158/79; PULSE 73; RESP 18; TEMP 36.8; O2SAT 92
[2020-10-28 09:08] VITALS: BP 159/86; PULSE 63; RESP 16; TEMP 36.9; O2SAT 93
[2020-10-28] MEDS: VENLAFAXINE HCL XR 75 MG CAP.ER.24H PO (09:09)
[2020-10-28] MEDS: ALPRAZolam (*CRX) 0.25 MG TABLET PO ×3 (09:09→20:26)
[2020-10-28] MEDS: PANTOPRAZOLE 40 MG TABLET PO ×2 (09:09→16:24)
[2020-10-28] MEDS: ENOXAPARIN 30 MG/0.3 ML SYRINGE SUB-Q (09:09)
[2020-10-28] MEDS: TRIAMTERENE 37.5 MG/HCTZ 25 MG (MAXZIDE) TABLET 2 TAB PO (09:10)
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
[2020-10-28] MEDS: MAGNESIUM OXIDE 200 MG TABLET PO ×2 (11:57→20:24)
[2020-10-28 14:00] VITALS: BP 133/87; PULSE 66; RESP 16; TEMP 36.7; O2SAT 96
[2020-10-28] MEDS: POTASSIUM CHLORIDE 20 MEQ TABLET 40 MEQ PO (16:23)
[2020-10-28 22:00] VITALS: BP 132/66; PULSE 75; RESP 18; TEMP 36.7; O2SAT 96
[2020-10-29 05:41] VITALS: BP 147/77; PULSE 66; RESP 18; TEMP 36.5; O2SAT 92
[2020-10-29 06:19] LABS: Alanine Aminotransferase 12 U/L (4-35); Albumin Level 3.5 g/dL (3.5-5.1); Alkaline Phosphatase 61 U/L (38-126); Anion Gap 5 mmol/L (8-16); Aspartate Amino Transferase 22 U/L (14-36); Bilirubin,Total 0.5 mg/dL (0.2-1.3); Blood Urea Nitrogen 12 mg/dL (7-17); Calcium 8.9 mg/dL (8.4-10.2); Carbon Dioxide 30 mmol/L (22-30); Chloride 101 mmol/L (98-107); Estimated CRCL calculation 39 ml/min; Estimated Glomerular Filt Rate 60; Glucose 121 mg/dL (65-105); Magnesium 1.5 mg/dL (1.6-2.3); Potassium 3.8 mmol/L (3.4-5.0); Sodium 136 mmol/L (137-145)
[2020-10-29] MEDS: ALPRAZolam (*CRX) 0.25 MG TABLET PO ×3 (09:06→21:40)
[2020-10-29] MEDS: ENOXAPARIN 30 MG/0.3 ML SYRINGE SUB-Q (09:06)
[2020-10-29] MEDS: VENLAFAXINE HCL XR 75 MG CAP.ER.24H PO (09:07)
[2020-10-29] MEDS: PANTOPRAZOLE 40 MG TABLET PO ×2 (09:07→17:26)
[2020-10-29] MEDS: MAGNESIUM OXIDE 200 MG TABLET PO ×2 (09:07→20:35)
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
[2020-10-29 14:00] VITALS: BP 124/75; PULSE 73; RESP 16; TEMP 36.4; O2SAT 95
[2020-10-29 22:00] VITALS: BP 146/85; PULSE 72; RESP 18; TEMP 36.9; O2SAT 97
[2020-10-30 05:56] VITALS: BP 155/74; PULSE 71; RESP 16; TEMP 36.6; O2SAT 90
[2020-10-30] MEDS: ALPRAZolam (*CRX) 0.25 MG TABLET PO ×2 (08:02→12:59)
[2020-10-30] MEDS: ENOXAPARIN 30 MG/0.3 ML SYRINGE SUB-Q (08:03)
[2020-10-30] MEDS: PANTOPRAZOLE 40 MG TABLET PO (08:03)
[2020-10-30] MEDS: MAGNESIUM OXIDE 200 MG TABLET PO (08:03)
[2020-10-30] MEDS: VENLAFAXINE HCL XR 75 MG CAP.ER.24H PO (08:03)
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
--- NOTE | 2020-10-30 14:17 | PC.NURSE ---
Patient left [facility] at 1400 10/30/20 by [employer]. [facility] called 1401 10/30/20 notified Chris. [facility] called at 10/30/20 at 1417 that the patient arrived.
== END 2020-10-30 14:00 | DRG 689 ==
LOC: ANHED 21:27 → ANH3MEDSUR 22:13
PROVIDERS: Emergency Medicine; Internal Medicine; Admitting Provider Internal Medicine; Emergency Provider Emergency Medicine; PCP Emergency Medicine; Visit Provider Internal Medicine
DX: N39.0 Urinary tract infection, site not specified (principal); J18.9 Pneumonia, unspecified organism; G93.40 Encephalopathy, unspecified; B95.61 Methicillin susceptible Staphylococcus aureus infection as the cause of diseases classified elsewhere; T76.31XA Adult psychological abuse, suspected, initial encounter; I11.9 Hypertensive heart disease without heart failure; Z20.822 Contact with and (suspected) exposure to COVID-19; G47.33 Obstructive sleep apnea (adult) (pediatric); E87.6 Hypokalemia; F41.8 Other specified anxiety disorders; K21.9 Gastro-esophageal reflux disease without esophagitis; M79.672 Pain in left foot; M79.671 Pain in right foot; Z79.899 Other long term (current) drug therapy; Z86.73 Personal history of transient ischemic attack (TIA), and cerebral infarction without residual deficits; Z87.891 Personal history of nicotine dependence
CPT/HCPCS: 36415; 70450; 71045; 80048; 80053; 81001; 83735; 84484; 85025; 87077; 87086; 87088; 87186; 93005; 96365; 96366; 96367; 96372; 96376; 97110; 97116; 97161; 97165; 97530; 97535; 99285; A9270; C9803; G0378; J0456; J0696; J1650; J3370; U0003; U0005

== ENCOUNTER 2021-06-03 15:33 | Emergency (ER) | payer MEDICARE, MEDICAID, SELFPAY ==
--- NOTE | ~2021-06-03 | XR_ITS ---
EXAMINATION: XR chest 1V portable DATE: 06/03/2021 19:42 INDICATION: Fall. Hypertension. TECHNIQUE: A single frontal view of the chest was obtained. COMPARISON: Chest single view 10/26/2020, CT abdomen and pelvis 02/08/2020 FINDINGS: There are reticular opacities in right lower lung zone. No pleural effusion or pneumothorax . The heart size is normal. There are breast implants. IMPRESSION: 1. Reticular opacities in right lower lung zone, consistent with atelectasis versus scarring. Reviewed, dictated and finalized at location A. IMPRESSION: 1. Reticular opacities in right lower lung zone, consistent with atelectasis ve rsus scarring.
--- NOTE | ~2021-06-03 | CT_ITS ---
EXAMINATION: CT brain wo con DATE: 06/03/2021 20:00 INDICATION: Head injury. TECHNIQUE: Computed tomography (CT) of the head was performed without intravenous contrast. The mA wa s adjusted according to patient size. Iterative reconstruction technique was employed. The dose-lengt h product was 605.33 mGy-cm. COMPARISON: Head CT 10/26/20 FINDINGS: There are old infarcts involving the bilateral basal ganglia and thalami. There are scatter ed areas of low attenuation in the cerebral white matter. There is no intracranial hemorrhage, acute infarction, or abnormal intracranial mass lesion. The ventricles are normal in size. There is mild mu cosal thickening in the paranasal sinuses. The orbits are normal. There is right periorbital soft tis emre swelling. The mastoid air cells are normal. IMPRESSION: 1. Old infarcts involving the bilateral basal ganglia and thalami. 2. Stable extensive nonspecific cerebral white matter disease, which likely represents chronic small vessel ischemic disease. Reviewed, dictated and finalized at location A. IMPRESSION: 1. Old infarcts involving the bilateral basal ganglia and thalami. 2. Stable extensive nonspecific cerebral white matter disease, which likely rep resents chronic small vessel ischemic disease.
--- NOTE | ~2021-06-03 | CT_ITS ---
EXAMINATION: CT facial & cervical spine wo DATE: 06/03/2021 20:00 INDICATION: Head injury. TECHNIQUE: Computed tomography (CT) of the maxillofacial region and cervical spine was performed with out intravenous contrast. Automated exposure control and iterative reconstruction technique were empl oyed. The dose-length product was 176.74 mGy-cm. COMPARISON: CT cervical spine 03/17/20 FINDINGS: MAXILLOFACIAL CT: There is right periorbital soft tissue swelling. The orbits are normal. There is leftward deviation o f the nasal septum. No fracture. There is mild mucosal thickening in the paranasal sinuses. CERVICAL SPINE CT: There is mild scarring at the lung apices. There is 9 degrees dextrocurvature of cervicothoracic spin e. There is 2 mm anterolisthesis of C3 on C4 and 3 mm anterolisthesis of C4 on C5. Vertebral body hei ghts are normal. There is mildly decreased disc height at C3-C4 and C4-C5, severely decreased disc he ight at C5-C6 and C6-C7, and mildly decreased disc height at C7-T1. The following disc levels are spe cifically discussed: C2-C3: There is no uncovertebral joint osteoarthritis. There is severe bilateral facet joint osteoart hritis. There is mild left neural foraminal stenosis. There is no central canal stenosis. C3-C4: There is mild bilateral uncovertebral joint hypertrophy. There is ankylosis of the facet joint s with severe right and moderate left hypertrophy. There is mild bilateral neural foraminal stenosis. There is mild central canal stenosis. C4-C5: There is mild bilateral uncovertebral joint osteoarthritis. There is severe bilateral facet fred int osteoarthritis. There is mild right and moderate left neural foraminal stenosis. There is mild ce ntral canal stenosis. C5-C6: There is ankylosis of the uncovertebral joints with severe hypertrophy. There is severe right facet joint osteoarthritis. There is ankylosis of left facet joint with severe hypertrophy. There is mild right and moderate left neural foraminal stenosis. There is mild central canal stenosis. C6-C7: There is severe bilateral uncovertebral joint osteoarthritis. There is severe bilateral facet joint osteoarthritis. There is moderate right and mild left neural foraminal stenosis. There is mild central canal stenosis. C7-T1: There is mild left uncovertebral joint osteoarthritis. There is severe right and moderate left facet joint osteoarthritis. There is mild bilateral neural foraminal stenosis. There is no central c anal stenosis. IMPRESSION: 1. No fracture. 2. Severe cervical spondylosis. Reviewed, dictated and finalized at location A.
--- NOTE | ~2021-06-03 | XR_ITS ---
EXAMINATION: XR shoulder RT min 2V DATE: 06/03/2021 16:16 INDICATION: Right shoulder pain post fall 3 months prior TECHNIQUE: AP internally and externally rotated, AP oblique externally rotated and transscapular Y vi ews of the right shoulder were obtained. COMPARISON: Chest radiograph dated 02/08/2020 FINDINGS: Normal alignment. Old healed fracture of the lateral right third rib which can be seen on chest radio graph from 02/08/2020. No acute fracture. Mild glenohumeral osteoarthritis. Minimal acromioclavicular osteoarthritis. Tiny calcific density projecting over the soft tissues between the humeral head and t he acromion which could represent either a degenerative loose body or more likely rotator cuff calcif ic tendinitis. Soft tissues are otherwise unremarkable. Visualized portions of the right lung are stephie ar. And moderate to severe cervical and thoracic spondylosis. IMPRESSION: 1. No acute/subacute osseous abnormality at the right shoulder. 2. Tiny focus of likely right rotator cuff calcific tendinitis. Reviewed, dictated and finalized at location A.
[2021-06-03 15:40] VITALS: BP 130/68; PULSE 63; RESP 16; TEMP 36.1; O2SAT 99
[2021-06-03 19:28] VITALS: BP 128/78; PULSE 70; RESP 18; O2SAT 99
--- NOTE | 2021-06-03 19:35 | ED.HEATRA ---
HPI - Head Injury General Chief complaint: Head Injury Stated complaint: fall from wc, head injury Time Seen by Provider: 06/03/21 19:30 Source: RN notes reviewed History of Present Illness HPI Narrative: Patient presents emergency department from home for fall. Patient states she walked across the room to get to her wheelchair when she got the wheelchair was not locked and rolled out from under her and she fell striking her right shoulder and face on the ground states she did not have loss of consciousness notes pain on her face with bruising around her right eye she also notes pain in her right shoulder with pain with movement she denies any other trauma or injury she denies any chest pain, shortness of breath abdominal pain nausea vomiting or any other symptoms Related Data Home Medications Medication Instructions Recorded Confirmed amlodipine 10 mg tablet 10 mg PO DAILY 12/29/20 aspirin 81 mg tablet,delayed 81 mg PO DAILY 12/29/20 release atorvastatin 20 mg tablet 20 mg PO DAILY 12/29/20 lisinopril 20 mg tablet 20 mg PO DAILY 12/29/20 Allergies Allergy/AdvReac Type Severity Reaction Status Date / Time No Known Allergies Allergy Verified 06/10/20 05:03 Review of Systems Review of Systems: Gen.: Denies fevers or chills ENT: Denies congestion Respiratory: Denies shortness of breath or cough CV: Denies chest pain or palpitations GI: Denies abdominal pain nausea, emesis or diarrhea Musculoskeletal: See HPI Neuro: Denies numbness, tingling, weakness or focal weakness Skin: Denies rash Except as documented, all other systems reviewed and negative [facility] Past Medical History Medical History (Updated 06/03/21 @ 20:31 by Jersey Irwin DO) Cerebrovascular accident 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 Depression with anxiety Essential hypertension Gastroesophageal reflux disease Obstructive sleep apnea She does not use a CPAP. Rheumatic fever In childhood. Surgical History Surgical History History of appendectomy History of tonsillectomy and adenoidectomy Family History Family History Sibling Family history of malignant neoplasm of ovary Sister Acute myocardial infarction Another sister Mother PNA (pneumonia) Father Acute myocardial infarction Social History Social History Social History: The patient lives in her own home in [place], [place]. Her only child, a son Lam, in June 2019. 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 She smoked about a pack of cigarettes per day and quit many years ago. She denies alcohol and illicit substance use. She designates her ex-, Familia Grimm, and a friend named Inocencia as her surrogate decision makers. She wishes to be a full code. Smoking packs per day: 1 Smoking cigarettes per day: 20.0 Years smoked: 15 Smoking pack-years: 15.00 Smoking status: Former smoker Tobacco type: cigarettes Second hand tobacco smoke exposure: No Smoking end date: 02/08/20 Alcohol intake: never Substance use: never Gender identity (if verbalized by the patient): Female Sexual Orientation (if Verbalized by the Patient): Straight or Heterosexual Spiritual care concerns: No Exam Narrative: APPEARANCE: Well appearing, no apparent distress, well-nourished. HEENT: normocephalic, ecchymosis over the right superior and inferior orbit with mild ecchymosis over the bilateral anterior forehead nares patent full range of motion of the jaw without pain EYES: PERRL, EOMI NECK: Supple. No midline tenderness to palpation. Full range of motion without pain to palpation bilateral paravertebral C5-7 RESPIRATORY: No respiratory distress. Clear to auscultation bilaterally CARDIOVASCULAR: Regul
[2021-06-03] MEDS: ACETAMINOPHEN 500 MG TABLET 1000 MG PO (20:18)
== END 2021-06-03 23:02 ==
PROVIDERS: Emergency Provider Emergency Medicine; PCP Emergency Medicine
DX: S05.11XA Contusion of eyeball and orbital tissues, right eye, initial encounter (principal); S40.011A Contusion of right shoulder, initial encounter; Z86.73 Personal history of transient ischemic attack (TIA), and cerebral infarction without residual deficits; I10 Essential (primary) hypertension; K21.9 Gastro-esophageal reflux disease without esophagitis; G47.33 Obstructive sleep apnea (adult) (pediatric); Z79.82 Long term (current) use of aspirin; Z87.891 Personal history of nicotine dependence; F41.8 Other specified anxiety disorders; R91.8 Other nonspecific abnormal finding of lung field; R90.82 White matter disease, unspecified; M47.812 Spondylosis without myelopathy or radiculopathy, cervical region; W05.0XXA Fall from non-moving wheelchair, initial encounter
CPT/HCPCS: 70450; 70486; 71045; 72125; 73030; 99284; A9270

== ENCOUNTER 2022-10-27 21:24 | Emergency (ER) | payer MEDICARE, SELFPAY ==
[2022-10-27] VITALS (8 sets, daily range): BP systolic 93–123; BP diastolic 59–76; PULSE 58–94; RESP 11–24; TEMP 36.4; O2SAT 90–97
--- NOTE | 2022-10-27 22:36 | ECG_ITS ---
Measurements Intervals [place] Rate: 56 P: 11 MA: 181 QRS: -6 QRSD: 86 T: 29 QT: 434 QTc: 421 Interpretive Statements SINUS BRADYCARDIA CONSIDER INFERIOR INFARCT, AGE INDETERMINATE BASELINE ARTIFACT- I, III, V2 ABNORMAL ECG COMPARED TO ECG 10/26/2020 21:20:57 SINUS BRADYCARDIA NOW PRESENT Electronically Signed On 10-28-2022 7:55:45 VIDEOTAPE OPERATOR by Zan Díaz D.O.
[2022-10-27 23:10] LABS: Basophils Percent Auto 0.3 % (0.2-1.2); Eosinophils Absolute Auto 0.1 K/mm3 (0-0.3); Eosinophils Percent Auto 2.3 % (0-4.4); Hematocrit 41.1 % (37.0-47.0); Hemoglobin 13.9 g/dL (12.0-15.0); Immature Granulocyte Absolute 0.02 K/mm3 (0.00-0.031); Immature Granulocyte Percent A 0.3 % (0-0.5); Lymphocytes Absolute Auto 1.68 K/mm3 (0.9-3.2); Lymphocytes Percent Auto 27.1 % (18.3-44.2); Mean Corpuscular HGB Conc 33.8 g/dl (32-36); Mean Corpuscular Hemoglobin 28.8 pg (26-34); Mean Corpuscular Volume 85.3 fl (80-100); Mean Platelet Volume 9.7 fl (7.4-10.4); Monocytes Absolute Auto 0.9 K/mm3 (0.1-0.6); Monocytes Percent Auto 14.4 % (2.6-8.5); Neutrophils Absolute Auto 3.5 K/mm3 (1.3-6.7); Neutrophils Percent Auto 55.6 % (45.5-73.1); Platelet Count Result 148 k/mm3 (150-375); Red Blood Count 4.82 M/mm3 (4.2-5.4); Red Cell Distribution Width 13.7 % (11.5-14.5); White Blood Count 6.2 K/mm3 (4.5-10.0)
[2022-10-27 23:26] LABS: Alanine Aminotransferase 21 U/L (6-35); Albumin Level 4.2 g/dL (3.5-5.1); Alkaline Phosphatase 65 U/L (38-126); Anion Gap 7 mmol/L (8-16); Aspartate Amino Transferase 23 U/L (14-36); Bilirubin,Total 0.5 mg/dL (0.2-1.3); Blood Urea Nitrogen 24 mg/dL (7-17); Calcium 9.5 mg/dL (8.4-10.2); Carbon Dioxide 26 mmol/L (22-30); Chloride 103 mmol/L (98-107); Estimated Glomerular Filt Rate 47; Glucose 118 mg/dL (65-110); Potassium 4.3 mmol/L (3.4-5.0); Sodium 136 mmol/L (137-145)
[2022-10-27 23:27] LABS: Acetaminophen < 10 ug/mL (10-30); Ethanol < 10 mg/dL (<10); Salicylate < 1.0 mg/dL (2-20)
[2022-10-27 23:47] LABS: Appearance Urine Clear (Clear); Bilirubin Urine Negative (Negative); Blood Urine Negative (Negative); Color Urine Yellow (Yellow); Glucose Urine UA Negative (Negative); Ketones Urine Negative (Negative); Leukocyte Esterase Ur Negative LEU/UL (Negative); Nitrate Urine Negative (Negative); Protein Urine Negative (Negative); Specific Grav Ur 1.021 (1.001-1.035); Urobilinogen Urine 0.2 mg/dL (<2.0); pH Urine 5.5 (5.0-9.0)
[2022-10-27 23:48] LABS: Influenza A QL RT-PCR Negative (Negative); Influenza B QL RT-PCR Negative (Negative); SARS-CoV-2 RNA PCR Negative
[2022-10-27 23:58] LABS: Add Urine Microscopic? NO
--- NOTE | 2022-10-28 00:03 | PC.NURSE ---
[id number] ROGELIO Molina from [facility] called for an update on pt. RN wanted to stress that pt threatened both nursing staff and EMS staff with harm. Staff pt also attempted to elope from the facility stating that she was going to the hospital. Informed RN that crisis will be called out to evaluate pt when medically cleared.
[2022-10-28 00:05] LABS: Amphetamine Screen Urine Negative (Negative); Barbiturate Screen Urine Negative (Negative); Benzodiazepines Screen Urine Negative (Negative); Cannabinoid Screen Urine Negative (Negative); Cocaine Screen Urine Negative (Negative); Methadone Screen Urine Negative (Negative); Opiate Screen Urine Negative (Negative); Phencyclidine Screen Urine Negative (Negative)
--- NOTE | 2022-10-28 00:26 | ED.GENADULT ---
HPI - General Adult General Chief complaint: Unspecified Stated complaint: behavioral problems Time Seen by Provider: 10/27/22 22:16 History of Present Illness HPI narrative: Patient 82-year-old female who presents the emergency department with chief complaint of depression and constipation. The patient states that she has been very depressed lately is not having suicidal or homicidal ideation. The patient states also that she has been having issues with constipation and has not had a good bowel movement. The patient denies abdominal pain denies vomiting denies fever or chills. Related Data Allergies Allergy/AdvReac Type Severity Reaction Status Date / Time No Known Allergies Allergy Verified 06/08/21 14:28 Review of Systems Review of Systems: A 10 system review of systems was completed on the patient and is negative except for what is stated in the HPI. Nursing and ancillary documentation was reviewed. [facility] Past Medical History Medical History (Updated 10/28/22 @ 01:25 by Lucho Mills MD) Cerebrovascular accident 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 Depression with anxiety Essential hypertension Gastroesophageal reflux disease Obstructive sleep apnea She does not use a CPAP. Rheumatic fever In childhood. Surgical History Surgical History History of appendectomy History of tonsillectomy and adenoidectomy Family History Family History Sibling Family history of malignant neoplasm of ovary Sister Acute myocardial infarction Another sister Mother PNA (pneumonia) Father Acute myocardial infarction Social History Social History Social History: The patient lives in her own home in [place], [place]. Her only child, a son Lam, in June 2019. 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 She smoked about a pack of cigarettes per day and quit many years ago. She denies alcohol and illicit substance use. She designates her ex-, Familia Grimm, and a friend named Inocencia as her surrogate decision makers. She wishes to be a full code. Smoking packs per day: 1 Smoking cigarettes per day: 20.0 Years smoked: 15 Smoking pack-years: 15.00 Smoking status: Former smoker Tobacco type: cigarettes Second hand tobacco smoke exposure: No Smoking end date: 02/08/20 Alcohol intake: never Substance use: never Gender identity (if verbalized by the patient): Female Sexual Orientation (if Verbalized by the Patient): Straight or Heterosexual Spiritual care concerns: No Exam Narrative: GENERAL: Well-appearing, well-nourished, and in no acute distress. HEAD: Normocephalic, atraumatic. EYES: PERRLA and EOMI. ENT: Nares clear, no rhinorrhea or epistaxis. Mucous membranes moist. NECK: Supple. CHEST: Clear to auscultation. No respiratory distress. HEART: Regular rate and rhythm. No murmur heard. Normal peripheral pulses. ABDOMEN: Soft, nontender, nondistended, normal active bowel sounds. EXTREMITIES: Normal range of motion. No edema. SKIN: Warm, dry, no rash. NEURO: No focal deficits. Alert and oriented x3. PSYCH: Normal mood and affect. Course Vital Signs Vital signs: Vital Signs Temperature 36.4 C L 10/27/22 21:35 Pulse Rate 58 L 10/27/22 21:35 Respiratory Rate 24 H 10/27/22 21:35 Blood Pressure 106/62 10/27/22 21:35 Pulse Oximetry 96 10/27/22 21:35 Oxygen Delivery Room Air 10/27/22 21:35 Temperature 36.4 C L 10/27/22 21:35 Pulse Rate 71 10/27/22 23:45 Respiratory Rate 11 L 10/27/22 23:45 Blood Pressure 123/72 10/27/22 23:45 Pulse Oximetry 95 10/27/22 23:45 Oxygen Delivery Room Air 10/27/22 21:35 Medical Decision Making [facility] Narrative [facility]
[2022-10-28 03:00] VITALS: BP 114/67; PULSE 55; RESP 15; O2SAT 99
== END 2022-10-28 03:05 | disposition home or self-care (01) ==
PROVIDERS: Emergency Provider Emergency Medicine; PCP Emergency Medicine
DX: K59.00 Constipation, unspecified (principal); F32.A Depression, unspecified; Z20.822 Contact with and (suspected) exposure to COVID-19; Z87.891 Personal history of nicotine dependence; F41.9 Anxiety disorder, unspecified; K21.9 Gastro-esophageal reflux disease without esophagitis; G47.30 Sleep apnea, unspecified; Z79.899 Other long term (current) drug therapy; Z79.82 Long term (current) use of aspirin
CPT/HCPCS: 36415; 80053; 80307; 81003; 84443; 85025; 87636; 93005; 99283

== ENCOUNTER 2023-02-24 04:25 | Emergency (ER) | payer MEDICARE, MEDICAID, SELFPAY ==
--- NOTE | ~2023-02-24 | CT_ITS ---
EXAMINATION: CT abdomen pelvis w con DATE: 02/24/2023 06:58 INDICATION: Rectal pain. Constipation. TECHNIQUE: Computed tomography (CT) of the abdomen and pelvis was performed with 100 mL Omnipaque 350 intravenous contrast. Automated exposure control and iterative reconstruction technique were employe d. The dose-length product was 649.97 mGy-cm. COMPARISON: CT abdomen and pelvis 02/08/2020 FINDINGS: The visualized portions of the lung bases demonstrate reticular opacities, groundglass opac ities, and mild airspace opacities, likely atelectasis. No pleural effusion. Cardiomegaly is noted. N o pericardial effusion. There are coronary artery calcifications. Bilateral breast implants are noted . There is a moderate-sized sliding hiatal hernia. The liver, gallbladder, spleen, pancreas, and adre nal glands are normal. There are cysts in the kidneys measuring up to 7 mm on the right. 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 There are no dilated loops of delaney l. The appendix is not visualized. There is calcified atherosclerosis of the aorta and many of the ot her arteries. There are no pathologically enlarged lymph nodes. There is no free intraperitoneal flui d. There is a left inguinal hernia containing fat. There is severe lumbar spondylosis. IMPRESSION: 1. Moderate-sized sliding hiatal hernia. 2. Left inguinal hernia containing fat. Reviewed, dictated and finalized at location A.
[2023-02-24 04:25] VITALS: BP 106/60; PULSE 68; RESP 17; TEMP 36.3; O2SAT 95
--- NOTE | 2023-02-24 05:51 | ED.GENADULT ---
HPI - General Adult General Chief complaint: Unspecified Stated complaint: RECTAL PAIN Time Seen by Provider: 02/24/23 05:03 History of Present Illness HPI narrative: Patient is an 82-year-old female presenting with rectal pain. Patient is coming from a nursing facility. She states that she has been constipated for several months. States that she has been having some rectal pain. Patient reportedly had a very large bowel movement prior to arrival. Other than rectal pain, patient denies complaints. No abdominal pain. No vomiting. No chest pain or difficulty breathing. States that her rectum still hurts. Related Data Allergies Allergy/AdvReac Type Severity Reaction Status Date / Time No Known Allergies Allergy Verified 02/24/23 04:43 Review of Systems Review of Systems: All systems reviewed & are unremarkable except as noted in HPI and below PMFSH Past Medical History Medical History (Updated 02/24/23 @ 07:38 by Johana Singh MD) Cerebrovascular accident 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 Depression with anxiety Essential hypertension Gastroesophageal reflux disease Obstructive sleep apnea She does not use a CPAP. Rheumatic fever In childhood. Surgical History Surgical History History of appendectomy History of tonsillectomy and adenoidectomy Family History Family History Sibling Family history of malignant neoplasm of ovary Sister Acute myocardial infarction Another sister Mother PNA (pneumonia) Father Acute myocardial infarction Social History Social History Social History: The patient lives in her own home in [place], [place]. Her only child, a son Lam, in June 2019. 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 She smoked about a pack of cigarettes per day and quit many years ago. She denies alcohol and illicit substance use. She designates her ex-, Familia Grimm, and a friend named Inocencia as her surrogate decision makers. She wishes to be a full code. Smoking packs per day: 1 Smoking cigarettes per day: 20.0 Years smoked: 15 Smoking pack-years: 15.00 Smoking status: Former smoker Tobacco type: cigarettes Second hand tobacco smoke exposure: No Smoking end date: 02/08/20 Alcohol intake: never Substance use: never Gender identity (if verbalized by the patient): Female Sexual Orientation (if Verbalized by the Patient): Straight or Heterosexual Spiritual care concerns: No Exam Narrative: GENERAL: Elderly female lying in bed in no acute distress HEAD: Normocephalic, atraumatic. EYES: PERRLA and EOMI. ENT: Mucous membranes moist. Poor dentition NECK: Supple. CHEST: No respiratory distress. HEART: Regular rate and rhythm. ABDOMEN: Soft, nontender, nondistended, rectal exam with skin tags and dried brown stool, no hemorrhoids or fissures, no hematochezia or melena EXTREMITIES: Normal range of motion. No edema. SKIN: Warm, dry, no rash. NEURO: No focal deficits. Alert and oriented x3. PSYCH: Normal mood and affect. Course Vital Signs Vital signs: Vital Signs Temperature 97.4 F L 02/24/23 04:25 Pulse Rate 68 02/24/23 04:25 Respiratory Rate 17 02/24/23 04:25 Blood Pressure 106/60 02/24/23 04:25 Pulse Oximetry 95 02/24/23 04:25 Oxygen Delivery Room Air 02/24/23 04:25 Temperature 97.4 F L 02/24/23 04:25 Pulse Rate 81 02/24/23 09:29 Respiratory Rate 16 02/24/23 09:29 Blood Pressure 121/74 02/24/23 09:29 Pulse Oximetry 94 02/24/23 09:29 Oxygen Delivery Room Air 02/24/23 04:25 Medical Decision Making MDM Narrative Medical decision making narrative: Patient is an 82-year-old female presenting with rectal pain. Vitals within
[2023-02-24] MEDS: SODIUM CHLORIDE 0.9% IV 1,000 ML 999 ML IV CONT (06:04)
[2023-02-24 06:12] LABS: Basophils Absolute Auto 0.1 K/mm3 (0.0-0.1); Basophils Percent Auto 0.5 % (0.2-1.2); Eosinophils Absolute Auto 0.3 K/mm3 (0-0.3); Eosinophils Percent Auto 2.3 % (0-4.4); Hematocrit 42.1 % (37.0-47.0); Hemoglobin 14.4 g/dL (12.0-15.0); Immature Granulocyte Absolute 0.03 K/mm3 (0.00-0.031); Immature Granulocyte Percent A 0.3 % (0-0.5); Lymphocytes Absolute Auto 1.82 K/mm3 (0.9-3.2); Lymphocytes Percent Auto 16.4 % (18.3-44.2); Mean Corpuscular HGB Conc 34.2 g/dl (32-36); Mean Corpuscular Hemoglobin 29.4 pg (26-34); Mean Corpuscular Volume 86.1 fl (80-100); Monocytes Absolute Auto 1.1 K/mm3 (0.1-0.6); Neutrophils Absolute Auto 7.8 K/mm3 (1.3-6.7); Neutrophils Percent Auto 70.5 % (45.5-73.1); Platelet Count Result 166 k/mm3 (150-375); Red Blood Count 4.89 M/mm3 (4.2-5.4); Red Cell Distribution Width 13.7 % (11.5-14.5); White Blood Count 11.1 K/mm3 (4.5-10.0)
[2023-02-24 06:19] LABS: Alanine Aminotransferase 20 U/L (6-35); Albumin Level 4.2 g/dL (3.5-5.1); Alkaline Phosphatase 83 U/L (38-126); Anion Gap 6 mmol/L (8-16); Aspartate Amino Transferase 23 U/L (14-36); Bilirubin,Total 0.7 mg/dL (0.2-1.3); Blood Urea Nitrogen 18 mg/dL (7-17); Calcium 9.4 mg/dL (8.4-10.2); Carbon Dioxide 29 mmol/L (22-30); Chloride 104 mmol/L (98-107); Estimated CRCL calculation 42 ml/min; Estimated Glomerular Filt Rate > 60; Glucose 126 mg/dL (65-110); Sodium 139 mmol/L (137-145)
--- NOTE | 2023-02-24 06:36 | PC.NURSE ---
Patient taken to CT via stretcher at this time.
[2023-02-24 07:21] VITALS: BP 113/63; PULSE 57; RESP 14; O2SAT 93
--- NOTE | 2023-02-24 07:21 | PC.NURSE ---
assumed care of pt. pt currently sleeping on stretcher, arousable to name. no complaints at this time, updated on status: waiting for urinalysis to complete and imaging to be read. no questions at this time
[2023-02-24 07:25] LABS: Appearance Urine Clear (Clear); Bilirubin Urine Negative (Negative); Blood Urine Negative (Negative); Color Urine Yellow (Yellow); Glucose Urine UA Negative (Negative); Ketones Urine Negative (Negative); Leukocyte Esterase Ur Negative LEU/UL (Negative); Nitrate Urine Negative (Negative); Protein Urine Negative (Negative); Specific Grav Ur 1.022 (1.001-1.035); pH Urine 5.5 (5.0-9.0)
[2023-02-24 07:30] LABS: Add Urine Microscopic? NO
[2023-02-24 09:29] VITALS: BP 121/74; PULSE 81; RESP 16; O2SAT 94
== END 2023-02-24 09:32 ==
PROVIDERS: Emergency Provider Emergency Medicine; PCP Emergency Medicine
DX: K59.00 Constipation, unspecified (principal); I10 Essential (primary) hypertension; K21.9 Gastro-esophageal reflux disease without esophagitis; G47.33 Obstructive sleep apnea (adult) (pediatric); Z86.73 Personal history of transient ischemic attack (TIA), and cerebral infarction without residual deficits; Z87.891 Personal history of nicotine dependence; K40.90 Unilateral inguinal hernia, without obstruction or gangrene, not specified as recurrent; K44.9 Diaphragmatic hernia without obstruction or gangrene
CPT/HCPCS: 36415; 74177; 80053; 81003; 85025; 96360; 96361; 99284; J7030; Q9967